=== PATIENT | male | born 1955 | race Caucasian/White ===

== ENCOUNTER 2022-03-06 23:36 | Inpatient (IN) | payer MEDICARE, OTHER ==
--- NOTE | 2022-03-06 23:43 | ED ---
Recheck HPI - General Stated Complaint: STEMI Time Seen by Provider: 03/06/22 23:41 Source: RN notes reviewed, old records reviewed Mode of arrival: EMS Limitations: no limitations - History of Present Illness Initial Comments: This is a 66-year-old male who is accepted in transfer from outside facility. Patient does have history of cardiomyopathy with defibrillator. Patient presents to hospital with persistent chest pain, patient is transferred for ST elevated MS. No prior history of stent placement. Patient has no shortness of breath currently. No recent travel show sick contacts no fevers cough congestion MD Complaint: abnormal lab, other (abn EKG, STEMI) -: minutes(s) Returns Today for: Called Because of Abnormal Lab/Test, persistent/worsening pain related to initial visit Symptoms Since Prior Visit: worsening pain Context: planned re-check (transfer for cardiolofy evaluation) Associated Symptoms: none Treatments Prior to Arrival: other (0) - Related Data Allergies Allergy/AdvReac Type Severity Reaction Status Date / Time morpine Allergy Itching Uncoded 03/06/22 23:40 Review of Systems ROS Statement: Those systems with pertinent positive or pertinent negative responses have been documented in the HPI. ROS Other: All systems not noted in ROS Statement are negative. General Exam General appearance: alert, in no apparent distress Head exam: Present: atraumatic, normocephalic, normal inspection Eye exam: Present: normal appearance, PERRL, EOMI. Absent: scleral icterus, conjunctival injection, periorbital swelling ENT exam: Present: normal exam, mucous membranes moist Neck exam: Present: normal inspection. Absent: tenderness, meningismus, lymphadenopathy Respiratory exam: Present: normal lung sounds bilaterally. Absent: respiratory distress, wheezes, rales, rhonchi, stridor Cardiovascular Exam: Present: regular rate, normal rhythm, normal heart sounds. Absent: systolic murmur, diastolic murmur, rubs, gallop, clicks GI/Abdominal exam: Present: soft, normal bowel sounds. Absent: distended, tenderness, guarding, rebound, rigid Extremities exam: Present: normal inspection, full ROM, normal capillary refill. Absent: tenderness, pedal edema, joint swelling, calf tenderness Back exam: Present: normal inspection Neurological exam: Present: alert, oriented X3, CN II-XII intact Psychiatric exam: Present: normal affect, normal mood Skin exam: Present: warm, dry, intact, normal color. Absent: rash Course - Reevaluation(s) Reevaluation #1: 03/06/22 23:42 Medical record is reviewed Transfer paperwork is reviewed 03/06/22 23:42 ST elevated MS is paged prehospital Reevaluation #2: 03/06/22 23:42 Patient has active chest pain here in the ER Reevaluation #3: 03/06/22 23:42 Patient informed results questions answered Reevaluation #4: 03/06/22 23:43 Differential Chest Pain: Stable Angina, Unstable Angina, STEMI, NSTEMI Aortic Dissection, Pneumothorax, Musculoskeletal, Esophageal Spasm GERD, Cholecystitis, Pancreatitis, Zoster, this is not meant to be an all-inclusive list. Reevaluation #5: 03/06/22 23:43 Was pt. sent in by a medical professional or institution? @ -yes prior ED physician [facility] Did you speak to anyone other than the patient for history? @ -EMS Did you review nursing and triage notes? @ -agree Were old charts reviewed? @ -outside hospital Differential Diagnosis? @ -prior EKG interpreted by me (3pts min.)? @ -[none] X-rays interpreted by me (1pt min.)? @ -[none] CT interpreted by me (1pt min.)? @ -[none] U/S interpreted by me (1pt. min.)? @ -[none] What testing was considered but not performed? (CT, X-rays, U/S, labs)? Why? @ no What meds were considered but not given? Why? @ -[none] Did you discuss the management of the patient with other professionals? @ -cardiology electrical electronics engineers Did you reconcile home meds? @ -[none] Was smoking cessation discussed for >3mins.? @ -[none] Was critical care preformed (if so, how long)? @ -[none] Were there social determinants of health that impacted care today? How? (Homelessness, low income, unemployed, alcoholism, drug addiction, transportation, low edu. Level, literacy, decrease access to med. care, halfway, rehab)? @ -no Was there de-escalation of care discussed even if they declined? (Discuss DNR or withdrawal of care, Hospice)? @ -no What co-morbidities impacted this encounter? (DM, HTN, Smoking, COPD, CAD, Cancer, CVA, Hep., AIDS, mental health diagnosis, sleep apnea, morbid obesity)? @ -cardiomyopathy w defibrillator Was patient admitted / discharged? @ -admit Undiagnosed new problem with uncertain prognosis? @ -[none] Drug Therapy requiring intensive monitoring for toxicity (Heparin, Nitro, Insulin, Cardizem)? @ -[none] Were any procedures done? @ -[none] Diagnosis/symptom? @ -[default] Acute, or Chronic, or Acute on Chronic? @ -[default] Uncomplicated (without systemic symptoms) or Complicated (systemic symptoms)? @ -[default] Side effects of treatment? @ -[none] Exacerbation, Progression, or Severe Exacerbation] @ -[no] Poses a threat to life or bodily function? @ -[no] - Consultations Consultation #1: I did speak with prior hospital, physician prior to except in transfer, Dr. Gama Consultation #2: Did speak with cardiology on-call after paging out ST elevated MS Consultation #3: Spoke with admitting physicians, [facility], they're agreeable to admission Medical Decision Making - Medical Decision Making 66 male to the emergency department for evaluation as transfer prior to going up to the [facility]. Patient is sent to the [facility] no distress of persistent chest pain. Disposition Clinical Impression: STEMI (ST elevation myocardial infarction), Chest pain, Cardiomyopathy Disposition: ADMITTED IP TO THIS HOSP Condition: Serious Is patient prescribed a controlled substance at d/c from ED?: No Referrals: None,Stated [Primary Care Provider] - 1-2 days Time of Disposition: 23:45
[2022-03-06] MEDS ORDERED: VERAPAMIL 2.5 MG/ML 2 ML AMP ONE (23:46)
[2022-03-06] MEDS ORDERED: HYDROmorphone 1 MG/ML 1 ML SYRINGE IVP PRN (23:50)
[2022-03-06] MEDS ORDERED: NALOXONE 0.4 MG/ML 1 ML VIAL IV PRN (23:50)
[2022-03-06] MEDS ORDERED: ONDANSETRON 4 MG/2 ML VIAL IVP PRN (23:50)
[2022-03-06] MEDS ORDERED: SODIUM CHLORIDE 0.9% 1,000 ML IV ONE (23:57)
[2022-03-06] MEDS ORDERED: LIDOCAINE 2% (PF) 20 MG/ML 5 ML VIAL SQ ONE (23:59)
[2022-03-07] MEDS ORDERED: VERAPAMIL SYRINGE (5 MG/10 ML) INTRAARTER ONE (00:02)
[2022-03-07] MEDS ORDERED: HEPARIN SODIUM 1,000 UN/ML (10ML VL) ONE (00:07)
[2022-03-07] MEDS ORDERED: TICAGRELOR 90 MG TAB ONE (00:23)
[2022-03-07] MEDS ORDERED: PRASUGREL 10 MG TAB ONE (00:25)
[2022-03-07] MEDS ORDERED: PRASUGREL 10 MG TAB PO ONE (00:27)
[2022-03-07] MEDS ORDERED: NITROGLYCERIN 1000MCG/10ML SYRINGE INTRACORON ONE (00:28)
[2022-03-07] MEDS ORDERED: IOPAMIDOL-370 125ML BTL INJ ONE (00:38)
[2022-03-07] MEDS ORDERED: ATROPINE SULFATE 0.1 MG/ML 10ML SYRINGE IV PRN (00:48)
[2022-03-07] MEDS ORDERED: MAG HYDROX/AL HYDROX/SIMETH 30 ML CUP PO PRN (00:48)
[2022-03-07] MEDS ORDERED: RX INFO: IV CONTRAST WAS GIVEN 1 EACH MISC MISCELLANE PRN (00:48)
[2022-03-07] MEDS ORDERED: NITROGLYCERIN SL TABS 0.4 MG TAB SUBLINGUAL PRN (00:48)
--- NOTE | 2022-03-07 00:48 | P.PRCINT ---
Percutaneous Coronary Int. - Percutaneous Coronary Intervention Percutaneous Coronary Intervention: PROCEDURES PERFORMED: Left coronary angiography, PCI mid LAD with a 3.25 x 15 mm Xience TOM INDICATION: STEMI PROCEDURE: After the risks, benefits and alternatives of the above mentioned procedure explained in detail with the patient, informed consent was obtained. Patient had already been taken to the catheterization lab and prepped and draped in usual fashion. A 6-Portuguese sheath had been placed in the right radial artery. The decision was made to perform PCI of the LAD. A 6-Portuguese CLS 4.0 guide catheter was used to engage the left main. A 0.014 BMW wire was advanced into the distal LAD. A 2.5 x 12 mm balloon was used to predilate the lesion. Next a 3.25 x 15 mm Xience TOM was placed in the mid LAD. The wire was pulled and final angiograms were performed. Preintervention there was 95% stenosis with JOHN 3 flow and postintervention there was less than 10% stenosis with JOHN 3 flow. The right radial sheath was removed and a TR band was placed with hemostasis achieved. The patient tolerated the procedure well. Patient was transported back to the post catheterization holding area in stable condition. Conscious Sedation: Patient was monitored under the direct supervision of vision of myself for conscious sedation using Versed and fentanyl for a total duration of 24 minutes HEMODYNAMICS: Aorta: 95/55 SELECTIVE CORONARY ARTERIOGRAPHY: LEFT MAIN: The left main is a large caliber vessel which bifurcates into the LAD and circumflex. There is no significant stenosis. LEFT ANTERIOR DESCENDING CORONARY ARTERY: LAD is a large caliber vessel which wraps around to the apex. There is relatively normal LAD other than a mid LAD 95% stenosis. LEFT CIRCUMFLEX CORONARY ARTERY: Left circumflex is a moderate caliber vessel with mild luminal irregularities RIGHT CORONARY ARTERY: The RCA was not injected, see diagnostic report however there are mild luminal irregularities of the RCA. FINAL IMPRESSION: 1. CAD as described above including mid LAD 95% stenosis and otherwise mild luminal irregularities 2. S/p PCI mid LAD with a 3.25 x 15 mm Xience TOM PLAN: 1. Aggressive risk factor modification per most recent ACC/AHA guidelines. 2. Continue aspirin and Effient for 12 months.
[2022-03-07] MEDS ORDERED: SODIUM CHLORIDE 0.9% 1,000 ML in EMPTY BAG 1 BAG IV SCH (01:00)
[2022-03-07 01:05] LABS: Glucose,Whole Blood 210 mg/dL (70-110)
--- NOTE | 2022-03-07 01:41 | CC ---
CARDIAC CATHETERIZATION REPORT INDICATIONS: Acute anterolateral myocardial infarction. PROCEDURE NOTE: After obtaining informed consent, left heart catheterization and coronary angiogram were performed via right radial artery using size 3.5 right Velma and size 4 left Velma catheter. The patient tolerated the procedure well without any obvious immediate complications. He received moderate conscious sedation, total sedation time was 21 minutes. Right radial artery access was obtained using modified Seldinger technique, and 6- Romanian sheath was placed. Catheters and wires were floated into the ascending aorta under fluoroscopic guidance. Patient received 5 mg of verapamil, was already on heparin prior to coming in. FINDINGS: 1. Hemodynamics: Left ventricular end-diastolic pressure is 36 mm. There is no significant gradient across the aortic valve. 2. Left Ventriculogram: Left ventriculogram is not performed. 3. Angiographic Data: a.Right Coronary Artery: Right coronary artery is a large dominant vessel and is free of stenosis. Left main coronary artery is a normal-sized vessel and is free of stenosis, divides into left anterior descending coronary artery and circumflex coronary artery. Circumflex coronary artery and its branches are free of significant stenosis. Proximal LAD shows a long segment of 90% stenosis. CONCLUSION: 90% focal stenosis involving LAD. PLAN: Patient will undergo angioplasty with stent placement of the same. MMODL / IJN: [id number] /
--- NOTE | 2022-03-07 01:52 | CONS ---
CONSULTATION HISTORY OF PRESENT ILLNESS: This is a 66-year-old gentleman with history of dilated cardiomyopathy, status post AICD, diabetes who regularly follows with a power plant operator from [place], probably Dr. Macdonald, had a subcutaneous ICD, presented to hospital with chest pain of 3 hours' duration. He is transferred from [facility] Emergency Room to us as a STEMI. His EKG shows sinus rhythm, left axis deviation, right bundle-branch block with ST-segment elevation in V3, V4, V5, and he also has frequent PVCs. EKG changes are suggestive of anterolateral myocardial infarction. At the time of my evaluation, the patient appears comfortable at rest. Chest pain is improving. I do not have a list of his medications. He denies any allergies. Denies smoking. There is no history of EtOH abuse or drug abuse. REVIEW OF SYSTEMS: HEENT: Unremarkable. CARDIAC: As described above. RESPIRATORY: As described above. GI: Negative. GENITOURINARY: Negative. ALLERGY/IMMUNOLOGY: None. SKIN: Negative. MUSCULOSKELETAL: Negative for arthritis. PSYCHOSOCIAL: Negative. DERM: Negative. CONSTITUTIONAL: As described above. Rest of the system review is not relevant. PHYSICAL EXAMINATION: GENERAL: On exam, he appears comfortable, not in distress but still is in pain. NECK: There is no jugular venous distention. CHEST: Reveals good air entry bilaterally. HEART: Reveals first and second heart sounds. No gallop. ABDOMEN: Soft. EXTREMITIES: Reveal bilateral 1+ pitting edema. ASSESSMENT: Acute anterolateral myocardial infarction, history of cardiomyopathy, status post ICD, history of diabetes, history of hypertension and dyslipidemia. PLAN: The patient will undergo emergent cardiac catheterization with a view to performing angioplasty. He is allergic to morphine and RAFIA inhibitors. MMODL / IJN: [id number] /
[2022-03-07] MEDS: SODIUM CHLORIDE 0.9% 1,000 ML IV SCH ×2 (02:20→23:47)
[2022-03-07] MEDS ORDERED: FUROSEMIDE 10 MG/ML 4 ML VIAL IV STA (02:41)
[2022-03-07] MEDS ORDERED: IPRATROPIUM-ALBUTEROL 3 ML NEB INHALATION STA (02:42)
[2022-03-07 03:55] LABS: Basophils # (A) 0.1 k/uL (0-0.2); Basophils % (A) 1 %; Eosinophils # (A) 0.1 k/uL (0-0.7); Eosinophils % (A) 1 %; HCT 49.7 % (39.0-53.0); HGB 16.6 gm/dL (13.0-17.5); Lymphocytes # (A) 1.5 k/uL (1.0-4.8); Lymphocytes % (A) 16 %; MCH 30.2 pg (25.0-35.0); MCHC 33.4 g/dL (31.0-37.0); MCV 90.2 fL (80.0-100.0); Mean Platelet Volume 8.8; Monocytes # (A) 0.6 k/uL (0-1.0); Monocytes % (A) 6 %; Neutrophils # (A) 7.5 k/uL (1.3-7.7); Neutrophils % (A) 76 %; Platelet Count 185 k/uL (150-450); RBC 5.51 m/uL (4.30-5.90); RDW 12.7 % (11.5-15.5); WBC 9.9 k/uL (3.8-10.6)
[2022-03-07 04:10] LABS: ALT 66 U/L (4-49); AST 298 U/L (17-59); African American GFR (CKD) >90 (>60 ml/min/1.73 sqM); Albumin 4.1 g/dL (3.5-5.0); Alkaline Phosphatase 104 U/L (38-126); Anion Gap 10 mmol/L; Blood Urea Nitrogen 19 mg/dL (9-20); Carbon Dioxide 23 mmol/L (22-30); Chloride 105 mmol/L (98-107); Glucose 204 mg/dL (74-99); Magnesium 2.2 mg/dL (1.6-2.3); Non-African American GFR(CKD) >90 (>60 ml/min/1.73 sqM); Phosphorus 3.9 mg/dL (2.5-4.5); Potassium 4.1 mmol/L (3.5-5.1); Sodium 138 mmol/L (137-145); Total Bilirubin 0.7 mg/dL (0.2-1.3); Total Protein 7.6 g/dL (6.3-8.2)
[2022-03-07] MEDS: ATORVASTATIN 40 MG TAB PO SCH (09:21)
[2022-03-07] MEDS: METOPROLOL SUCCINATE (ER) 25 MG TAB.ER.24H PO SCH (09:21)
[2022-03-07] MEDS: LOSARTAN 25 MG TAB PO SCH (09:21)
[2022-03-07] MEDS: ASPIRIN 81 MG PO SCH (09:21)
[2022-03-07] MEDS: FUROSEMIDE 10 MG/ML 4 ML VIAL IV SCH ×3 (09:21→23:46)
[2022-03-07 11:52] LABS: Glucose,Whole Blood 231 mg/dL (70-110)
--- NOTE | 2022-03-07 12:12 | PN ---
PROGRESS NOTE SUBJECTIVE: Cosmo is a 66-year-old gentleman with history of nonischemic cardiomyopathy with severe LV dysfunction, chronic systolic heart failure, who is admitted to hospital with acute anterolateral myocardial infarction, underwent emergent cardiac catheterization and angioplasty of the LAD. His chest pain has resolved. He appears short of breath at rest, but he states that he is chronically short of breath and does not seem to be in any distress. The patient is currently on aspirin, Lipitor. I started him on Lasix 40 mg IV q.8, losartan 25 mg daily, and Toprol-XL 25 mg daily. His troponin was 58 on his initial presentation with subsequent came back at 71. Hemoglobin is 16.6, potassium is 4.1, and a creatinine of 0.8. The patient initially presented to [facility] and had subsequently been transferred to [facility]. OBJECTIVE: VITAL SIGNS: Respiratory rate is 20, heart rate is 94 beats per minute. Blood pressure is 120/82. His O2 saturation is 95% on 2 L. CHEST: Reveals occasional crackles bilaterally. Heart exam reveals first and second heart sounds. No gallop. No murmur. ABDOMEN: Soft. EXTREMITIES: Reveals mild edema. ASSESSMENT AND PLAN: 1. Acute anterolateral myocardial infarction, status post catheterization and angioplasty of left anterior descending. 2. Cardiomyopathy with acute exacerbation of chronic systolic heart failure. 3. Status post AICD. PLAN: 1. The patient will continue with aspirin, Lipitor, Lasix, Toprol-XL, Cozaar, and Hep- Lock b.i.d. 2. The patient is also on Effient. I will obtain a 2D echo. If he is stable, we may be able to move him out of ICU either later this afternoon or tomorrow. MMODL / IJN: [id number] /
[2022-03-07] MEDS ORDERED: DEXTROSE 50% SYRINGE 50 ML IVP PRN ×2 (12:45)
--- NOTE | 2022-03-07 12:55 | P.HPIM ---
History of Present Illness H&P Date: 03/07/22 History of present illness; patient is 66-year-old gentleman with past medical significant for dilated cardiomyopathy, status post AICD, diabetes mellitus who is a transfer from [facility] because of chest pain. Patient initially presented there because of chest pain that started 3 hours ago, patient was found to have EKG changes and ST segment elevation in v3, V4, V5, V6. Patient was transferred to [facility] for further evaluation by interventional cardiology. Patient went cardiac cath S/p PCI mid LAD with a 3.25 x 15 mm Xience TOM. Patient was admitted to ICU for further evaluation and treatment REVIEW OF SYSTEMS: CONSTITUTIONAL: No fever, no malaise, no fatigue. HEENT: No recent visual problems or hearing problems. Denied any sore throat. CARDIOVASCULAR: No chest pain, orthopnea, PND, no palpitations, no syncope. PULMONARY: No shortness of breath, no cough, no hemoptysis. GASTROINTESTINAL: No diarrhea, no nausea, no vomiting, no abdominal pain. NEUROLOGICAL: No headaches, no weakness, no numbness. HEMATOLOGICAL: Denies any bleeding or petechiae. GENITOURINARY: Denies any burning micturition, frequency, or urgency. MUSCULOSKELETAL/RHEUMATOLOGICAL: Denies any joint pain, swelling, or any muscle pain. ENDOCRINE: Denies any polyuria or polydipsia. The rest of the 14-point review of systems is negative. PHYSICAL EXAMINATION: GENERAL: The patient is alert and oriented x3, not in any acute distress. Well developed, well nourished. HEENT: Pupils are round and equally reacting to light. EOMI. No scleral icterus. No conjunctival pallor. Normocephalic, atraumatic. No pharyngeal erythema. No thyromegaly. CARDIOVASCULAR: S1 and S2 present. No murmurs, rubs, or gallops. PULMONARY: Chest is clear to auscultation, no wheezing or crackles. ABDOMEN: Soft, nontender, nondistended, normoactive bowel sounds. No palpable organomegaly. MUSCULOSKELETAL: No joint swelling or deformity. EXTREMITIES: No cyanosis, clubbing, or pedal edema. NEUROLOGICAL: Gross neurological examination did not reveal any focal deficits. SKIN: No rashes. Assessment and plan ST elevation [place] S/p PCI mid LAD with a 3.25 x 15 mm Xience TOM CAD Dilated cardiomyopathy status post AICD Diabetes mellitus Hypertension Plan; Monitor vital signs Monitor CBC Monitor CMP Monitor blood sugar levels, continue sliding scale insulin Continue aspirin and Effient. Continue losartan and metoprolol Continue Lipitor Follow-up on cardiology recommendations Past Medical History Past Medical History: Coronary Artery Disease (CAD), Chest Pain / Angina, Diabetes Mellitus Additional Past Medical History / Comment(s): Divertiuitis, ostomy with reversal, cardiomyopathy History of Any Multi-Drug Resistant Organisms: None Reported Additional Past Surgical History / Comment(s): Multiple abdominal surgeries Past Anesthesia/Blood Transfusion Reactions: No Reported Reaction Past Psychological History: Depression Smoking Status: Former smoker Medications and Allergies Allergies Allergy/AdvReac Type Severity Reaction Status Date / Time morpine Allergy Itching Uncoded 03/06/22 23:40 Physical Exam Vitals: Vital Signs Pulse Resp BP BP Pulse Ox 03/07/22 12:00 93 25 H 116/69 94 L 03/07/22 11:00 92 14 131/46 95 03/07/22 10:00 101 H 20 125/89 93 L 03/07/22 09:00 96 14 118/80 93 L 03/07/22 08:00 90 16 123/83 93 L 03/07/22 07:58 90 L 03/07/22 07:00 94 20 121/83 95 03/07/22 06:30 92 14 119/79 95 03/07/22 06:00 101 H 26 H 123/100 94 L 03/07/22 05:30 93 20 115/69 95 03/07/22 05:00 98 16 112/71 95 03/07/22 04:33 28 H 112/71 03/07/22 04:30 90 18 116/76 94 L 03/07/22 04:00 96 16 119/88 94 L 03/07/22 03:55 93 03/07/22 03:49 98 03/07/22 03:33 17 119/88 03/07/22 03:30 100 20 131/107 95 03/07/22 03:00 94 29 H 113/99 94 L 03/07/22 02:33 22 113/99 03/07/22 02:30 92 12 123/77 94 L 03/07/22 02:03 22 123/77 03/07/22 02:00 101 H 15 115/73 93 L 03/07/22 01:33 26 H 121/91 03/07/22 01:30 98 19 136/79 95 03/07/22 01:18 24 136/79 03/07/22 01:03 30 H 123/87 03/07/22 00:48 28 H Intake and Output 03/06/22 03/07/22 03/07/22 22:59 06:59 14:59 Intake Total 780 100 Output Total 1350 400 Balance -570 -300 Intake: IV 280 100 Sodium Chloride 0.9% 1, 230 100 000 ml @ 20 mls/hr IV . Q24H [facility] Rx#:[id number] Oral 500 Output: Urine 1350 400 Other: Voiding Method Urinal # Voids 0 Weight 123 kg Results CBC & Chem 7: 03/07/22 03:29 03/07/22 03:29 Labs: Abnormal Lab Results - Last 24 Hours (Table) 03/07/22 03/07/22 03/07/22 Range/Units 01:03 03:29 03:29 Glucose 204 H (74-99) mg/dL POC Glucose (mg/dL) 210 H (70-110) mg/dL AST 298 H (17-59) U/L ALT 66 H (4-49) U/L Troponin I 58.000 H* (0.000-0.034) ng/mL 03/07/22 03/07/22 Range/Units 06:10 11:50 Glucose (74-99) mg/dL POC Glucose (mg/dL) 231 H (70-110) mg/dL AST (17-59) U/L ALT (4-49) U/L Troponin I 71.700 H* (0.000-0.034) ng/mL Thrombosis Risk Factor Assmnt - Choose All That Apply Each Risk Factor Represents 2 Points: Age 61-74 years Thrombosis Risk Factor Assessment Total Risk Factor Score: 2 Thrombosis Risk Factor Assessment Level: Low Risk
[2022-03-07 12:57] LABS: Glucose,Whole Blood 251 mg/dL (70-110)
[2022-03-07] MEDS: INSULIN ASPART (NovoLOG) 100 UNIT/ML VIAL SQ SCH ×3 (13:24→20:20)
[2022-03-07 16:29] LABS: Glucose,Whole Blood 235 mg/dL (70-110)
[2022-03-07] MEDS ORDERED: INSULIN ASPART (NovoLOG) 100 UNIT/ML VIAL SQ SCH (17:30)
[2022-03-07 20:14] LABS: Glucose,Whole Blood 153 mg/dL (70-110)
[2022-03-08 06:05] LABS: Basophils # (A) 0.1 k/uL (0-0.2); Basophils % (A) 1 %; Eosinophils # (A) 0.2 k/uL (0-0.7); Eosinophils % (A) 2 %; HCT 48.1 % (39.0-53.0); HGB 15.1 gm/dL (13.0-17.5); Lymphocytes # (A) 1.7 k/uL (1.0-4.8); Lymphocytes % (A) 21 %; MCH 28.9 pg (25.0-35.0); MCHC 31.5 g/dL (31.0-37.0); MCV 91.7 fL (80.0-100.0); Mean Platelet Volume 8.5; Monocytes # (A) 0.7 k/uL (0-1.0); Monocytes % (A) 8 %; Neutrophils # (A) 5.4 k/uL (1.3-7.7); Neutrophils % (A) 67 %; Platelet Count 169 k/uL (150-450); RBC 5.24 m/uL (4.30-5.90); RDW 12.6 % (11.5-15.5); WBC 8.1 k/uL (3.8-10.6)
[2022-03-08 06:15] LABS: African American GFR (CKD) >90 (>60 ml/min/1.73 sqM); Anion Gap 5 mmol/L; Blood Urea Nitrogen 19 mg/dL (9-20); Calcium 8.3 mg/dL (8.4-10.2); Carbon Dioxide 28 mmol/L (22-30); Chloride 102 mmol/L (98-107); Glucose 144 mg/dL (74-99); Non-African American GFR(CKD) 88 (>60 ml/min/1.73 sqM); Sodium 135 mmol/L (137-145)
[2022-03-08 06:51] LABS: Glucose,Whole Blood 171 mg/dL (70-110)
[2022-03-08] MEDS: INSULIN ASPART (NovoLOG) 100 UNIT/ML VIAL SQ SCH ×4 (06:54→20:18)
[2022-03-08] MEDS: ASPIRIN 81 MG PO SCH (09:08)
[2022-03-08] MEDS: FUROSEMIDE 10 MG/ML 4 ML VIAL IV SCH (09:08)
[2022-03-08] MEDS: METOPROLOL SUCCINATE (ER) 25 MG TAB.ER.24H PO SCH (09:08)
[2022-03-08] MEDS: ATORVASTATIN 40 MG TAB PO SCH (09:08)
[2022-03-08] MEDS: PRASUGREL 10 MG TAB PO SCH (09:09)
[2022-03-08] MEDS: LOSARTAN 25 MG TAB PO SCH (09:09)
--- NOTE | 2022-03-08 10:40 | PN ---
PROGRESS NOTE SUBJECTIVE: A 66-year-old gentleman that is admitted to hospital with acute anterolateral myocardial infarction and underwent cardiac catheterization and angioplasty of the LAD. He has a history of cardiomyopathy and chronic systolic heart failure and has had an AICD. This morning, he is feeling much better, did not have any echo yesterday. He denies chest pain or difficulty in breathing. OBJECTIVE: VITAL SIGNS: Afebrile, heart rate is 87 beats per minute, blood pressure is 107/68, respiratory rate 18, O2 saturation 95% on 3 L. NECK: There is no jugular venous distention. Carotid upstroke is diminished. There is no bruit. CHEST: Reveals good air entry bilaterally. HEART: Reveals first and second heart sounds. No gallop. No murmur. EXTREMITIES: Did not reveal any edema. Peripheral pulses are palpable. LABORATORY DATA: Labs show a hemoglobin of 15.1, platelet count is 169, potassium is 4, creatinine is 0.9. MEDICATIONS: The patient is currently on: 1. Aspirin. 2. Lipitor. 3. Lasix 40 mg IV q.8, which I am going to decrease to IV q.12. 4. Cozaar. 5. Toprol. 6. Effient. ASSESSMENT: 1. Acute anterolateral myocardial infarction, status post cath and angioplasty. 2. Ischemic cardiomyopathy with chronic systolic heart failure. PLAN: I will continue the patient on current medications. Stop the Cozaar at this time and start him back on Entresto after 48 hours. Continue rest of the medications. MMODL / IJN: [id number] /
[2022-03-08 11:48] LABS: Glucose,Whole Blood 173 mg/dL (70-110)
--- NOTE | 2022-03-08 12:20 | P.PN ---
Subjective Progress Note Date: 03/08/22 patient is 66-year-old gentleman with past medical significant for dilated cardiomyopathy, status post AICD, diabetes mellitus who is a transfer from [facility] because of chest pain. Patient initially presented there because of chest pain that started 3 hours ago, patient was found to have EKG changes and ST segment elevation in v3, V4, V5, V6. Patient was transferred to [facility] for further evaluation by interventional cardiology. Patient went cardiac cath S/p PCI mid LAD with a 3.25 x 15 mm Xience TOM. Patient was admitted to ICU for further evaluation and treatment 03/08. Patient seen and examined. Not requiring any oxygen at this time. States breathing has improved. No chest pain. Vital signs stable REVIEW OF SYSTEMS: CONSTITUTIONAL: No fever, no malaise,. CARDIOVASCULAR: No chest pain, no palpitations, no syncope. PULMONARY: No shortness of breath, no cough, GASTROINTESTINAL: No diarrhea, no nausea, no vomiting, no abdominal pain. NEUROLOGICAL: No headaches, no weakness, PHYSICAL EXAMINATION: GENERAL: The patient is alert and oriented x3, not in any acute distress. Well developed, well nourished. HEENT: Pupils are round and equally reacting to light. EOMI. No scleral icterus. No conjunctival pallor. Normocephalic, atraumatic. No pharyngeal erythema. No thyromegaly. CARDIOVASCULAR: S1 and S2 present. No murmurs, rubs, or gallops. PULMONARY: Chest is clear to auscultation, no wheezing or crackles. ABDOMEN: Soft, nontender, nondistended, normoactive bowel sounds. No palpable organomegaly. MUSCULOSKELETAL: No joint swelling or deformity. EXTREMITIES: No cyanosis, clubbing, or pedal edema. NEUROLOGICAL: Gross neurological examination did not reveal any focal deficits. SKIN: No rashes. Assessment and plan ST elevation [place] S/p PCI mid LAD with a 3.25 x 15 mm Xience TOM CAD Dilated cardiomyopathy status post AICD Diabetes mellitus Hypertension Plan; Monitor vital signs Monitor CBC Monitor CMP Monitor blood sugar levels, continue sliding scale insulin Continue aspirin and Effient. Continue losartan and metoprolol Lasix decreased to 40 mg every 12 Continue Lipitor Follow-up on cardiology recommendations Objective - Vital Signs Vital signs: Vital Signs Temp 98.5 F 03/08/22 11:57 Pulse 84 03/08/22 11:57 Resp 22 03/08/22 11:57 BP 85/42 03/08/22 11:57 Pulse Ox 93 L 03/08/22 11:57 FiO2 Intake & Output 03/07/22 03/08/22 03/08/22 18:59 06:59 18:59 Intake Total 100 180 Output Total 2600 1050 Balance -2500 180 -1050 Weight 123 kg 120.5 kg Intake: IV 100 180 Sodium Chloride 0.9% 1, 100 180 000 ml @ 20 mls/hr IV . Q24H [facility] Rx#:[id number] Output: Urine 2600 1050 Other: Voiding Method Urinal Urinal Urinal # Voids 0 3 # Bowel Movements 1 - Labs CBC & Chem 7: 03/08/22 05:45 03/08/22 05:45 Labs: Abnormal Lab Results - Last 24 Hours (Table) 03/07/22 03/07/22 03/07/22 Range/Units 03:29 12:56 16:28 Sodium (137-145) mmol/L Glucose (74-99) mg/dL POC Glucose (mg/dL) 251 H 235 H (70-110) mg/dL Hemoglobin A1c 9.3 H (0.0-6.0) % Calcium (8.4-10.2) mg/dL 03/07/22 03/08/22 03/08/22 Range/Units 20:13 05:45 06:50 Sodium 135 L (137-145) mmol/L Glucose 144 H (74-99) mg/dL POC Glucose (mg/dL) 153 H 171 H (70-110) mg/dL Hemoglobin A1c (0.0-6.0) % Calcium 8.3 L (8.4-10.2) mg/dL 03/08/22 Range/Units 11:46 Sodium (137-145) mmol/L Glucose (74-99) mg/dL POC Glucose (mg/dL) 173 H (70-110) mg/dL Hemoglobin A1c (0.0-6.0) % Calcium (8.4-10.2) mg/dL
[2022-03-08] MEDS ORDERED: ACETAMINOPHEN TAB 325 MG TAB PO PRN (14:54)
[2022-03-08] MEDS: ALPRAZolam 0.25 MG TAB PO PRN (15:17)
[2022-03-08 17:29] LABS: Glucose,Whole Blood 261 mg/dL (70-110)
[2022-03-08 19:42] LABS: Glucose,Whole Blood 190 mg/dL (70-110)
[2022-03-08] MEDS: NOREPINEPHRINE 4 MG in SODIUM CHLORIDE 0.9% 250 ML IV SCH (20:08)
[2022-03-08] MEDS: ZOLPIDEM 5 MG TAB PO PRN (20:18)
[2022-03-08] MEDS ORDERED: FUROSEMIDE 10 MG/ML 4 ML VIAL IV SCH (21:00)
[2022-03-08 23:54] LABS: Magnesium 2.4 mg/dL (1.6-2.3)
[2022-03-09] MEDS: ALPRAZolam 0.25 MG TAB PO PRN (00:05)
[2022-03-09] MEDS: SODIUM CHLORIDE 0.9% 1,000 ML IV SCH (00:05)
[2022-03-09 05:29] LABS: Basophils % (A) 1 %; Eosinophils # (A) 0.2 k/uL (0-0.7); Eosinophils % (A) 3 %; HCT 46.5 % (39.0-53.0); HGB 15.2 gm/dL (13.0-17.5); Lymphocytes # (A) 2.2 k/uL (1.0-4.8); Lymphocytes % (A) 23 %; MCH 30.3 pg (25.0-35.0); MCHC 32.7 g/dL (31.0-37.0); MCV 92.5 fL (80.0-100.0); Mean Platelet Volume 8.7; Monocytes # (A) 0.7 k/uL (0-1.0); Monocytes % (A) 8 %; Neutrophils # (A) 5.9 k/uL (1.3-7.7); Neutrophils % (A) 63 %; Platelet Count 180 k/uL (150-450); RBC 5.02 m/uL (4.30-5.90); RDW 13.1 % (11.5-15.5); WBC 9.4 k/uL (3.8-10.6)
[2022-03-09 05:40] LABS: ALT 51 U/L (4-49); AST 68 U/L (17-59); African American GFR (CKD) >90 (>60 ml/min/1.73 sqM); Albumin 3.8 g/dL (3.5-5.0); Alkaline Phosphatase 93 U/L (38-126); Anion Gap 5 mmol/L; Blood Urea Nitrogen 28 mg/dL (9-20); Calcium 8.5 mg/dL (8.4-10.2); Carbon Dioxide 29 mmol/L (22-30); Chloride 101 mmol/L (98-107); Glucose 149 mg/dL (74-99); Non-African American GFR(CKD) 83 (>60 ml/min/1.73 sqM); Potassium 3.9 mmol/L (3.5-5.1); Sodium 135 mmol/L (137-145); Total Bilirubin 1.5 mg/dL (0.2-1.3); Total Protein 7.1 g/dL (6.3-8.2)
[2022-03-09 06:54] LABS: Glucose,Whole Blood 130 mg/dL (70-110)
[2022-03-09] MEDS: INSULIN ASPART (NovoLOG) 100 UNIT/ML VIAL SQ SCH ×4 (06:59→20:26)
--- NOTE | 2022-03-09 07:48 | P.PN ---
Subjective Progress Note Date: 03/09/22 Principal diagnosis: Acute anterior ST elevation myocardial infarction The patient is a 66-year-old gentleman who was admitted to the hospital with a chest discomfort and was diagnosed with acute anterior ST elevation myocardial infarction be he underwent an emergent heart catheterization and stenting of the LAD March 092022 The patient was seen and evaluated this morning. He is asymptomatic. He is hemodynamically unstable and requiring small doses of norepinephrine. I'm going to decrease the dose of Lasix to 20 mg by mouth twice a day hopefully we can wean him from norepinephrine. Beside that she remains on dual antiplatelet therapy along with intermediate intensity statin. Echo still pending Objective - Vital Signs Vital signs: Vital Signs Temp 98.4 F 03/09/22 00:00 Pulse 86 03/09/22 06:15 Resp 13 03/09/22 06:15 BP 118/70 03/09/22 06:15 Pulse Ox 93 L 03/09/22 06:15 FiO2 Intake & Output 03/08/22 03/09/22 03/09/22 18:59 06:59 18:59 Intake Total 398.564 Output Total 1050 Balance -1050 398.564 Intake: IV 360 Sodium Chloride 0.9% 1, 360 000 ml @ 20 mls/hr IV . Q24H [facility] Rx#:[id number] Intake, IV Titration 38.564 Amount Norepinephrine 4 mg In 38.564 Sodium Chloride 0.9% 250 ml @ 0.03 MCG/KG/MIN 13. 773 mls/hr IV .[id number] [facility] Rx#:[id number] Output: Urine 1050 Other: Voiding Method Urinal Urinal # Voids 2 - Constitutional General appearance: Present: no acute distress - Respiratory Respiratory: bilateral: CTA - Cardiovascular Rhythm: regular - Labs CBC & Chem 7: 03/09/22 05:16 03/09/22 05:16 Labs: Abnormal Lab Results - Last 24 Hours (Table) 03/08/22 03/08/22 03/08/22 Range/Units 11:46 17:26 19:41 Sodium (137-145) mmol/L BUN (9-20) mg/dL Glucose (74-99) mg/dL POC Glucose (mg/dL) 173 H 261 H 190 H (70-110) mg/dL Magnesium (1.6-2.3) mg/dL Total Bilirubin (0.2-1.3) mg/dL AST (17-59) U/L ALT (4-49) U/L 03/08/22 03/09/22 03/09/22 Range/Units 23:24 05:16 06:53 Sodium 135 L (137-145) mmol/L BUN 28 H (9-20) mg/dL Glucose 149 H (74-99) mg/dL POC Glucose (mg/dL) 130 H (70-110) mg/dL Magnesium 2.4 H (1.6-2.3) mg/dL Total Bilirubin 1.5 H (0.2-1.3) mg/dL AST 68 H (17-59) U/L ALT 51 H (4-49) U/L Assessment and Plan Assessment: Assessment Acute anterior ST elevation myocardial infarction Hypotension requiring vasopressors Plan Decrease the dose of Lasix Continue dual antiplatelet therapy Try to wean the patient from norepinephrine
[2022-03-09] MEDS: ASPIRIN 81 MG PO SCH (09:05)
[2022-03-09] MEDS: ATORVASTATIN 40 MG TAB PO SCH (09:05)
[2022-03-09] MEDS: PRASUGREL 10 MG TAB PO SCH (09:05)
[2022-03-09] MEDS: TERBUTALINE 1 MG/ML VIAL SQ ONE ×2 (09:30→09:51)
--- NOTE | 2022-03-09 10:16 | P.CNPUL ---
History of Present Illness Consult date: 03/09/22 Requesting physician: Eddy Jurado Reason for consult: chest pain Chief complaint: Chest pain. History of present illness: Pulmonary consult dated 03/09/2022. 66-year-old male who was seen in the emergency room on March 06. The patient was a transfer from an outside facility for chest pain, cardiomyopathy, and suspected ST segment elevation myocardial infarction. The patient apparently de nied any shortness of breath, but did have chest discomfort. Going to the catheterization laboratory on March 07 had a stent placed in his mid LAD vessel. The procedure was done by Dr. Prajapati. Currently, the patient is seen in the intensive care unit. He is in room 254. The patient's on 2 L of oxygen. He is getting saline at KVO. He is also getting a small amount of norepinephrine, at 3.5 g/min. He is resting comfortably without any distress. CBC is normal. Sodium 135, potassium 3.9, chlorides 101, CO2 29, anion gap 5, BUN 28, and creatinine 0.96. No recent chest x-ray. Review of Systems REVIEW OF SYSTEMS: CONSTITUTIONAL: [Negative.] NEUROLOGIC: [ Negative.] HEENT: [ Negative.] CARDIAC: Chest pain. PULMONARY: [Negative.] GI: [Negative.] : [Negative.] RHEUMATOLOGIC: [ Negative.] IMMUNOLOGIC: [ Negative.] ENDOCRINE: [Negative. ] DERMATOLOGIC: [Negative.] Past Medical History Past Medical History: Coronary Artery Disease (CAD), Chest Pain / Angina, Diabetes Mellitus Additional Past Medical History / Comment(s): Divertiuitis, ostomy with reversal, cardiomyopathy History of Any Multi-Drug Resistant Organisms: None Reported Additional Past Surgical History / Comment(s): Multiple abdominal surgeries Past Anesthesia/Blood Transfusion Reactions: No Reported Reaction Past Psychological History: Depression Smoking Status: Former smoker Medications and Allergies Home Medications Medication Instructions Recorded Confirmed Type Empagliflozin [Jardiance] 25 mg PO DAILY 03/07/22 03/07/22 History Furosemide [Lasix] 40 mg PO DAILY 03/07/22 03/07/22 History Insulin Glargine,Hum.rec.anlog 40 units SQ BID 03/07/22 03/07/22 History [Lantus Solostar Pen] Sacubitril/Valsartan [Entresto 49 1 tab PO BID 03/07/22 03/07/22 History mg-51 mg Tablet] Spironolactone [Aldactone] 25 mg PO DAILY 03/07/22 03/07/22 History carvediloL [Coreg] 3.125 mg PO BID 03/07/22 03/07/22 History metFORMIN HCL 1,000 mg PO BID 03/07/22 03/07/22 History Allergies Allergy/AdvReac Type Severity Reaction Status Date / Time morpine Allergy Itching Uncoded 03/06/22 23:40 Physical Exam Osteopathic Statement: *. No significant issues noted on an osteopathic structural exam other than those noted in the History and Physical/Consult. Vitals: Vital Signs Temp Pulse Pulse Resp BP BP Pulse Ox 03/09/22 09:15 91 103/63 93 L 03/09/22 09:00 88 14 99/66 94 L 03/09/22 08:45 90 112/78 93 L 03/09/22 08:30 90 111/67 94 L 03/09/22 08:15 87 110/66 03/09/22 08:00 97.7 F 87 10 L 109/72 93 L 03/09/22 07:45 90 98/67 94 L 03/09/22 07:30 92 12 102/58 03/09/22 07:15 94 03/09/22 07:00 92 123/83 97 03/09/22 06:45 82 22 116/82 03/09/22 06:30 78 20 121/79 03/09/22 06:15 86 13 118/70 93 L 03/09/22 06:00 87 14 118/77 93 L 03/09/22 05:45 87 13 108/75 93 L 03/09/22 05:30 80 20 120/75 93 L 03/09/22 05:15 84 17 103/74 93 L 03/09/22 05:00 93 13 101/67 93 L 03/09/22 04:45 85 25 H 107/76 93 L 03/09/22 04:30 92 26 H 92 L 03/09/22 04:15 85 22 91 L 03/09/22 04:00 98 15 100/64 94 L 03/09/22 03:45 84 18 94/68 93 L 03/09/22 03:30 86 17 103/69 92 L 03/09/22 03:15 88 20 118/91 93 L 03/09/22 03:00 87 17 109/82 93 L 03/09/22 02:45 85 19 104/72 94 L 03/09/22 02:30 86 16 102/60 93 L 03/09/22 02:15 88 25 H 104/75 93 L 03/09/22 02:00 81 20 99/69 92 L 03/09/22 01:45 81 20 101/65 93 L 03/09/22 01:30 78 13 100/74 93 L 03/09/22 01:15 89 10 L 102/62 93 L 03/09/22 01:00 83 17 102/74 97 03/09/22 00:45 85 24 94/47 96 03/09/22 00:30 87 26 H 104/80 93 L 03/09/22 00:15 88 14 96/70 93 L 03/09/22 00:00 98.4 F 88 12 101/68 93 L 03/08/22 23:45 86 17 97/69 93 L 03/08/22 23:30 89 27 H 100/67 93 L 03/08/22 23:15 92 18 127/59 92 L 03/08/22 23:00 95 17 102/89 92 L 03/08/22 22:45 90 20 146/93 93 L 03/08/22 22:30 89 33 H 97/80 92 L 03/08/22 22:15 86 10 L 77/52 03/08/22 22:00 82 13 76/57 95 03/08/22 21:45 80 19 93/46 03/08/22 21:30 88 29 H 116/100 93 L 03/08/22 21:15 82 25 H 108/95 03/08/22 21:00 82 20 97/66 96 03/08/22 20:45 87 5 L 92/65 94 L 03/08/22 20:30 86 12 77/58 93 L 03/08/22 20:15 80 19 82/60 93 L 03/08/22 20:00 82 19 95 03/08/22 19:45 83 19 78/53 93 L 03/08/22 19:41 98.7 F 82 14 78/53 93 L 03/08/22 19:30 72 17 83/56 95 01/15/23 19:15 80 11 L 95 03/08/22 16:00 98.4 F 20 83/56 98 03/08/22 11:57 98.5 F 84 22 85/42 93 L Intake and Output 03/08/22 03/09/22 03/09/22 22:59 06:59 14:59 Intake Total 238.564 160 86.541 Balance 238.564 160 86.541 Intake: IV 200 160 Sodium Chloride 0.9% 1, 200 160 000 ml @ 20 mls/hr IV . Q24H [facility] Rx#:[id number] Intake, IV Titration 38.564 86.541 Amount Norepinephrine 4 mg In 38.564 86.541 Sodium Chloride 0.9% 250 ml @ 0.03 MCG/KG/MIN 13. 773 mls/hr IV .[id number] [facility] Rx#:[id number] Other: Voiding Method Urinal Urinal # Voids 2 No acute distress, oriented 3. Nasal O2 in place at 2 L. HEENT examination is grossly unremarkable. Neck supple. Full range of motion. No adenopathy thyromegaly or neck vein distention. Cardiovascular examination reveals regular rhythm rate. S1-S2 normal. No S3 or S4. No discernible murmur noted. Heart rate 87 bpm. Lungs reveal clear breath sounds. Breath sounds are equal bilaterally. No adventitious lung sounds including wheezes rhonchi or crackles. Abdomen soft bowel sounds are heard. No masses or tenderness. Extremities are intact. No cyanosis clubbing or edema. Skin is without rash or lesion. Neurologic examination is brief but nonfocal. Results - Laboratory Findings CBC and BMP: 03/09/22 05:16 03/09/22 05:16 Abnormal lab findings: Abnormal Labs 03/07/22 03/07/22 03/07/22 01:03 03:29 03:29 Sodium BUN Glucose 204 H POC Glucose (mg/dL) 210 H Hemoglobin A1c Calcium Magnesium Total Bilirubin AST 298 H ALT 66 H Troponin I 58.000 H* 03/07/22 03/07/22 03/07/22 03:29 06:10 11:50 Sodium BUN Glucose POC Glucose (mg/dL) 231 H Hemoglobin A1c 9.3 H Calcium Magnesium Total Bilirubin AST ALT Troponin I 71.700 H* 01/14/23 01/14/23 01/14/23 12:56 16:28 20:13 Sodium BUN Glucose POC Glucose (mg/dL) 251 H 235 H 153 H Hemoglobin A1c Calcium Magnesium Total Bilirubin AST ALT Troponin I 03/08/22 03/08/22 03/08/22 05:45 06:50 11:46 Sodium 135 L BUN Glucose 144 H POC Glucose (mg/dL) 171 H 173 H Hemoglobin A1c Calcium 8.3 L Magnesium Total Bilirubin AST ALT Troponin I 03/08/22 03/08/22 03/08/22 17:26 19:41 23:24 Sodium BUN Glucose POC Glucose (mg/dL) 261 H 190 H Hemoglobin A1c Calcium Magnesium 2.4 H Total Bilirubin AST ALT Troponin I 03/09/22 03/09/22 05:16 06:53 Sodium 135 L BUN 28 H Glucose 149 H POC Glucose (mg/dL) 130 H Hemoglobin A1c Calcium Magnesium Total Bilirubin 1.5 H AST 68 H ALT 51 H Troponin I Assessment and Plan Assessment: ST segment elevation myocardial infarction, status post stent placement, mid LAD, 03/07/2022. History of cardiomyopathy. Status post AICD placement. History of diabetes mellitus. Plan: Plan dated 03/09/2022. The nurse will attempt to wean the patient also norepinephrine. The patient appears to be relatively stable. He is sitting in a chair next to his bed. The chest pain or chest discomfort. There is no shortness of breath or difficulty breathing. Labs, x-rays, and medications are reviewed. We will continue to follow the patient and make recommendations along the way. Time with Patient: Greater than 30
[2022-03-09] MEDS: FUROSEMIDE 10 MG/ML 2 ML VIAL IV SCH ×2 (10:48→20:27)
[2022-03-09] MEDS: METOPROLOL SUCCINATE (ER) 25 MG TAB.ER.24H PO SCH (10:48)
--- NOTE | 2022-03-09 11:22 | P.PN ---
Subjective Progress Note Date: 03/09/22 patient is 66-year-old gentleman with past medical significant for dilated cardiomyopathy, status post AICD, diabetes mellitus who is a transfer from [facility] because of chest pain. Patient initially presented there because of chest pain that started 3 hours ago, patient was found to have EKG changes and ST segment elevation in v3, V4, V5, V6. Patient was transferred to [facility] for further evaluation by interventional cardiology. Patient went cardiac cath S/p PCI mid LAD with a 3.25 x 15 mm Xience TOM. Patient was admitted to ICU for further evaluation and treatment 03/08. Patient seen and examined. Not requiring any oxygen at this time. States breathing has improved. No chest pain. Vital signs stable 03/09. Patient seen and examined. Patient was initiated on Levothroid overnight because of hypotension, currently off the Levothroid. States breathing is imp roved, gets short of breath on exertion REVIEW OF SYSTEMS: CONSTITUTIONAL: No fever, no malaise,. CARDIOVASCULAR: No chest pain, no palpitations, no syncope. PULMONARY: As mentioned in HPI GASTROINTESTINAL: No diarrhea, no nausea, no vomiting, no abdominal pain. NEUROLOGICAL: No headaches, no weakness, PHYSICAL EXAMINATION: GENERAL: The patient is alert and oriented x3, not in any acute distress. Well developed, well nourished. HEENT: Pupils are round and equally reacting to light. EOMI. No scleral icterus. No conjunctival pallor. Normocephalic, atraumatic. No pharyngeal erythema. No thyromegaly. CARDIOVASCULAR: S1 and S2 present. No murmurs, rubs, or gallops. PULMONARY: Chest is clear to auscultation, no wheezing or crackles. ABDOMEN: Soft, nontender, nondistended, normoactive bowel sounds. No palpable organomegaly. MUSCULOSKELETAL: No joint swelling or deformity. EXTREMITIES: No cyanosis, clubbing, or pedal edema. NEUROLOGICAL: Gross neurological examination did not reveal any focal deficits. SKIN: No rashes. Assessment and plan ST elevation [place] S/p PCI mid LAD with a 3.25 x 15 mm Xience TOM CAD Dilated cardiomyopathy status post AICD Diabetes mellitus Hypertension Plan; Monitor vital signs Monitor CBC Monitor CMP Monitor blood sugar levels, continue sliding scale insulin Continue aspirin and Effient. Continue losartan and metoprolol Decrease Lasix to 20 mg every 12 Continue Lipitor Follow-up on cardiology recommendations Objective - Vital Signs Vital signs: Vital Signs Temp 97.7 F 03/09/22 08:00 Pulse 87 03/09/22 10:00 Resp 16 03/09/22 10:00 BP 101/69 03/09/22 10:00 Pulse Ox 93 L 03/09/22 10:00 FiO2 Intake & Output 03/08/22 03/09/22 03/09/22 18:59 06:59 18:59 Intake Total 398.564 336.541 Output Total 1050 0 Balance -1050 398.564 336.541 Intake: IV 360 Sodium Chloride 0.9% 1, 360 000 ml @ 20 mls/hr IV . Q24H [facility] Rx#:[id number] Intake, IV Titration 38.564 86.541 Amount Norepinephrine 4 mg In 38.564 86.541 Sodium Chloride 0.9% 250 ml @ 0.03 MCG/KG/MIN 13. 773 mls/hr IV .[id number] [facility] Rx#:[id number] Oral 250 Output: Urine 1050 0 Other: Voiding Method Urinal Urinal # Voids 2 - Labs CBC & Chem 7: 03/09/22 05:16 03/09/22 05:16 Labs: Abnormal Lab Results - Last 24 Hours (Table) 03/08/22 03/08/22 03/08/22 Range/Units 11:46 17:26 19:41 Sodium (137-145) mmol/L BUN (9-20) mg/dL Glucose (74-99) mg/dL POC Glucose (mg/dL) 173 H 261 H 190 H (70-110) mg/dL Magnesium (1.6-2.3) mg/dL Total Bilirubin (0.2-1.3) mg/dL AST (17-59) U/L ALT (4-49) U/L 03/08/22 03/09/22 03/09/22 Range/Units 23:24 05:16 06:53 Sodium 135 L (137-145) mmol/L BUN 28 H (9-20) mg/dL Glucose 149 H (74-99) mg/dL POC Glucose (mg/dL) 130 H (70-110) mg/dL Magnesium 2.4 H (1.6-2.3) mg/dL Total Bilirubin 1.5 H (0.2-1.3) mg/dL AST 68 H (17-59) U/L ALT 51 H (4-49) U/L
[2022-03-09 11:25] LABS: Glucose,Whole Blood 225 mg/dL (70-110)
[2022-03-09 12:55] VITALS: BMI 40.4
[2022-03-09 16:11] LABS: Glucose,Whole Blood 283 mg/dL (70-110)
[2022-03-09] MEDS: NOREPINEPHRINE 4 MG in SODIUM CHLORIDE 0.9% 250 ML IV SCH (18:06)
--- NOTE | 2022-03-09 18:07 | CA ---
Transthoracic Echo Report Name: Cosmo Jim Age: 66 Gender: M : 1955 Exam Date: 03/09/2022 08:20 Exam Location: [place] [facility] Ht (in): 68 Wt (lb): 265 Ordering Physician: Rajinder Cummins MD ([id number]) Attending/Referring Phys: Maria G FRIEDMAN Act English Tutor Ester Garcia RDCS Procedure CPT: Indications: Assess LV function/post stemi Cardiac Hx: Technical Quality: Fair, Technically difficult study Contrast 1: Total Dose (mL): Contrast 2: Total Dose (mL): MEASUREMENTS (Male / Female) Normal Values 2D ECHO LV Diastolic Diameter PLAX 6.3 cm 4.2 - 5.9 / 3.9 - 5.3 cm LV Systolic Diameter PLAX 5.4 cm IVS Diastolic Thickness 1.3 cm 0.6 - 1.0 / 0.6 - 0.9 cm LVPW Diastolic Thickness 1.4 cm 0.6 - 1.0 / 0.6 - 0.9 cm LV Relative Wall Thickness 0.4 RV Internal Dim ED PLAX 4.1 cm M-MODE Aortic Root Diameter MM 2.6 cm LA Systolic Diameter MM 5.3 cm LA Ao Ratio MM 2.0 AV Cusp Separation MM 1.9 cm DOPPLER AV Peak Velocity 80.1 cm/s AV Peak Gradient 2.6 mmHg LVOT Peak Velocity 69.9 cm/s LVOT Peak Gradient 2.0 mmHg MV Area PHT 5.0 cm??? Mitral E Point Velocity 99.8 cm/s Mitral A Point Velocity 54.0 cm/s Mitral E to A Ratio 1.8 MV Deceleration Time 152.9 ms MV E' Velocity 3.9 cm/s Mitral E to MV E' Ratio 25.8 TR Peak Velocity 266.3 cm/s TR Peak Gradient 28.4 mmHg Right Ventricular Systolic Press 33.4 mmHg FINDINGS Left Ventricle Attempted Lumason but no IV access. Mildly increased septal wall thickness. Mildly increased left ventricular diastolic diameter. Mild left ventricular dilatation. Severely reduced global left ventricular systolic function. Left ventricular ejection fraction is estimated at 25 %. Right Ventricle Moderate right ventricular dilatation. Right ventricular systolic pressure within normal limits. Right Atrium Normal right atrial size. Left Atrium Mildly increased left atrial area. Mitral Valve Mild mitral regurgitation. Aortic Valve No aortic valve stenosis or regurgitation. Tricuspid Valve Structurally normal tricuspid valve. Mild tricuspid regurgitation. Pulmonic Valve Trace pulmonic regurgitation. Pericardium No pericardial effusion. Aorta Normal size aortic root and proximal ascending aorta. CONCLUSIONS Suboptimal acoustic windows Dilated LV with severe LV dysfunction ejection fraction less than 25% Previewed by: Dr. Sherwin Tena MD (Electronically Signed) Final Date: 09 March 2022 18:06
[2022-03-09 19:50] LABS: Glucose,Whole Blood 248 mg/dL (70-110)
[2022-03-09 20:27] LABS: Glucose,Whole Blood 210 mg/dL (70-110)
[2022-03-09] MEDS: INSULIN DETEMIR (LEVEMIR) 100 UNIT/ML SYR SQ SCH (20:27)
[2022-03-09] MEDS: ZOLPIDEM 5 MG TAB PO PRN (21:58)
[2022-03-10] MEDS: SODIUM CHLORIDE 0.9% 1,000 ML IV SCH (01:49)
[2022-03-10] MEDS: ALPRAZolam 0.25 MG TAB PO PRN ×2 (02:37→21:18)
[2022-03-10 05:50] LABS: Glucose,Whole Blood 139 mg/dL (70-110)
[2022-03-10 06:14] LABS: Basophils % (A) 1 %; Eosinophils # (A) 0.1 k/uL (0-0.7); Eosinophils % (A) 2 %; HCT 44.1 % (39.0-53.0); HGB 14.1 gm/dL (13.0-17.5); Lymphocytes # (A) 1.3 k/uL (1.0-4.8); Lymphocytes % (A) 19 %; MCH 28.9 pg (25.0-35.0); MCHC 31.8 g/dL (31.0-37.0); MCV 90.8 fL (80.0-100.0); Mean Platelet Volume 9.2; Monocytes # (A) 0.7 k/uL (0-1.0); Monocytes % (A) 10 %; Neutrophils # (A) 4.6 k/uL (1.3-7.7); Neutrophils % (A) 67 %; Platelet Count 148 k/uL (150-450); RBC 4.86 m/uL (4.30-5.90); RDW 12.6 % (11.5-15.5); WBC 6.9 k/uL (3.8-10.6)
[2022-03-10 06:26] LABS: ALT 39 U/L (4-49); AST 37 U/L (17-59); African American GFR (CKD) >90 (>60 ml/min/1.73 sqM); Albumin 3.6 g/dL (3.5-5.0); Alkaline Phosphatase 95 U/L (38-126); Anion Gap 6 mmol/L; Blood Urea Nitrogen 27 mg/dL (9-20); Calcium 8.1 mg/dL (8.4-10.2); Carbon Dioxide 30 mmol/L (22-30); Chloride 100 mmol/L (98-107); Glucose 149 mg/dL (74-99); Non-African American GFR(CKD) >90 (>60 ml/min/1.73 sqM); Potassium 3.9 mmol/L (3.5-5.1); Sodium 136 mmol/L (137-145); Total Bilirubin 1.2 mg/dL (0.2-1.3)
[2022-03-10] MEDS: INSULIN ASPART (NovoLOG) 100 UNIT/ML VIAL SQ SCH ×4 (06:36→21:17)
[2022-03-10 06:37] LABS: Glucose,Whole Blood 146 mg/dL (70-110)
--- NOTE | 2022-03-10 08:03 | P.PN ---
Subjective Progress Note Date: 03/10/22 Principal diagnosis: Acute anterior ST elevation myocardial infarction The patient is a 66-year-old gentleman who was admitted to the hospital with a chest discomfort and was diagnosed with acute anterior ST elevation myocardial infarction be he underwent an emergent heart catheterization and stenting of the LAD March 092022 The patient was seen and evaluated this morning. He is asymptomatic. He is hemodynamically unstable and requiring small doses of norepinephrine. I'm going to decrease the dose of Lasix to 20 mg by mouth twice a day hopefully we can wean him from norepinephrine. Beside that she remains on dual antiplatelet therapy along with intermediate intensity statin. Echo still pending March 102022 The patient was seen and evaluated this morning. He is asymptomatic. He is hemodynamically stable and not on vasopressin at this point. The echo revealed severe cardiomyopathy with EF around 20%. Currently he is on dual antiplatelet therapy along with intermediate intensity statin. I'm going to add a small dose of RAFIA inhibitor to the current medical regimen. He has been having a low saturation during the night. I'm going to continue the Lasix for additional 24 hours and switch the patient to Lasix by mouth tomorrow. The patient can be transferred out of the intensive care unit. Objective - Vital Signs Vital signs: Vital Signs Temp 98.2 F 03/10/22 04:00 Pulse 93 03/10/22 06:20 Resp 18 03/10/22 06:20 BP 117/67 03/10/22 04:00 Pulse Ox 92 L 03/10/22 06:20 FiO2 40 03/10/22 04:00 Intake & Output 03/09/22 03/10/22 03/10/22 18:59 06:59 18:59 Intake Total 826.541 150 Output Total 1050 450 Balance -223.459 -300 Weight 120.5 kg Intake: Intake, IV Titration 86.541 Amount Norepinephrine 4 mg In 86.541 Sodium Chloride 0.9% 250 ml @ 0.03 MCG/KG/MIN 13. 773 mls/hr [id number] Rx#:[id number] Oral 740 150 Output: Urine 1050 450 Other: Voiding Method Toilet Toilet Urinal Urinal # Voids 1 # Bowel Movements 1 1 - Constitutional General appearance: Present: no acute distress - Respiratory Respiratory: bilateral: diminished - Cardiovascular Rhythm: regular - Labs CBC & Chem 7: 03/10/22 05:45 03/10/22 05:45 Labs: Abnormal Lab Results - Last 24 Hours (Table) 03/09/22 03/09/22 03/09/22 Range/Units 11:23 16:08 19:47 Plt Count (150-450) k/uL Sodium (137-145) mmol/L BUN (9-20) mg/dL Glucose (74-99) mg/dL POC Glucose (mg/dL) 225 H 283 H 248 H (70-110) mg/dL Calcium (8.4-10.2) mg/dL 03/09/22 03/10/22 03/10/22 Range/Units 20:25 05:45 05:45 Plt Count 148 L (150-450) k/uL Sodium 136 L (137-145) mmol/L BUN 27 H (9-20) mg/dL Glucose 149 H (74-99) mg/dL POC Glucose (mg/dL) 210 H (70-110) mg/dL Calcium 8.1 L (8.4-10.2) mg/dL 03/10/22 03/10/22 Range/Units 05:47 06:36 Plt Count (150-450) k/uL Sodium (137-145) mmol/L BUN (9-20) mg/dL Glucose (74-99) mg/dL POC Glucose (mg/dL) 139 H 146 H (70-110) mg/dL Calcium (8.4-10.2) mg/dL Assessment and Plan Assessment: Assessment Acute anterior ST elevation myocardial infarction Hypotension requiring vasopressors which has resolved Severe cardiomyopathy, ischemic Plan Decrease the dose of Lasix and continue Lasix IV for additional 24-hour Continue dual antiplatelet therapy Add small dose of RAFIA inhibitor to the current medical regimen
[2022-03-10] MEDS: INSULIN DETEMIR (LEVEMIR) 100 UNIT/ML SYR SQ SCH ×2 (09:03→21:17)
[2022-03-10] MEDS: PRASUGREL 10 MG TAB PO SCH (09:03)
[2022-03-10] MEDS: ATORVASTATIN 40 MG TAB PO SCH (09:04)
[2022-03-10] MEDS: FUROSEMIDE 10 MG/ML 2 ML VIAL IV SCH ×2 (09:04→21:17)
[2022-03-10] MEDS: METOPROLOL SUCCINATE (ER) 25 MG TAB.ER.24H PO SCH (09:04)
[2022-03-10] MEDS: ASPIRIN 81 MG PO SCH (09:04)
[2022-03-10] MEDS ORDERED: Potassium Replacement Protocol 1 EACH MISC MISCELLANE PRN (09:24)
[2022-03-10] MEDS ORDERED: POTASSIUM CHLORIDE ER 20 MEQ TAB.ER PO SCH (10:00)
--- NOTE | 2022-03-10 10:46 | P.PN ---
Subjective Progress Note Date: 03/10/22 Principal diagnosis: Myocardial infarction. Pulmonary consult dated 03/09/2022. 66-year-old male who was seen in the emergency room on March 06. The patient was a transfer from an outside facility for chest pain, cardiomyopathy, and suspected ST segment elevation myocardial infarction. The patient apparently denied any shortness of breath, but did have chest discomfort. Going to the catheterization laboratory on March 07 had a stent placed in his mid LAD vessel. The procedure was done by Dr. Prajapati. Currently, the patient is seen in the intensive care unit. He is in room 254. The patient's on 2 L of oxygen. He is getting saline at KVO. He is also getting a small amount of norepinephrine, at 3.5 g/min. He is resting comfortably without any distress. CBC is normal. Sodium 135, potassium 3.9, chlorides 101, CO2 29, anion gap 5, BUN 28, and creatinine 0.96. No recent chest x-ray. Progress note dated 03/10/2022. The patient is again seen in the intensive care unit, room 254. The patient came in with a ST segment elevation myocardial infarction, had a PCI, and a stent placed, to his mid LAD. Currently is not receiving any IV fluids. He is on 2 L of oxygen. He feels well. The patient is hoping to be discharged out of the intensive care unit later today. He had an uneventful night according to the nurses. White count 6.9, hemoglobin 14.1, and platelet count 248,000. Sodium 136, potassium 3.9, chlorides 100, CO2 30, BUN 27, and creatinine 0.88. Objective - Vital Signs Vital signs: Vital Signs Temp 97.5 F L 03/10/22 08:00 Pulse 94 03/10/22 09:00 Resp 20 03/10/22 08:00 BP 108/80 03/10/22 08:00 Pulse Ox 94 L 03/10/22 09:00 FiO2 40 03/10/22 04:00 Intake & Output 03/09/22 03/10/22 03/10/22 18:59 06:59 18:59 Intake Total 826.541 150 Output Total 1050 450 150 Balance -223.459 -300 -150 Weight 120.5 kg Intake: Intake, IV Titration 86.541 Amount Norepinephrine 4 mg In 86.541 Sodium Chloride 0.9% 250 ml @ 0.03 MCG/KG/MIN 13. 773 mls/hr IV .[id number] [facility] Rx#:[id number] Oral 740 150 Output: Urine 1050 450 150 Other: Voiding Method Toilet Toilet Toilet Urinal Urinal Urinal # Voids 1 # Bowel Movements 1 1 - Exam No acute distress, oriented 3. Currently on 2 L of oxygen. HEENT examination is grossly unremarkable. Neck supple. Full range of motion. No adenopathy thyromegaly or neck vein distention. Cardiovascular examination reveals regular rhythm rate. S1-S2 normal. No S3 or S4. No discernible murmur noted. Heart rate 90 bpm. Lungs reveal clear breath sounds. Breath sounds are equal bilaterally. No adventitious lung sounds including wheezes rhonchi or crackles. Abdomen soft bowel sounds are heard. No masses or tenderness. Extremities are intact. No cyanosis clubbing or edema. Skin is without rash or lesion. Neurologic examination is brief but nonfocal. - Labs CBC & Chem 7: 03/10/22 05:45 03/10/22 05:45 Labs: Abnormal Lab Results - Last 24 Hours (Table) 03/09/22 03/09/22 03/09/22 Range/Units 11:23 16:08 19:47 Plt Count (150-450) k/uL Sodium (137-145) mmol/L BUN (9-20) mg/dL Glucose (74-99) mg/dL POC Glucose (mg/dL) 225 H 283 H 248 H (70-110) mg/dL Calcium (8.4-10.2) mg/dL 03/09/22 03/10/22 03/10/22 Range/Units 20:25 05:45 05:45 Plt Count 148 L (150-450) k/uL Sodium 136 L (137-145) mmol/L BUN 27 H (9-20) mg/dL Glucose 149 H (74-99) mg/dL POC Glucose (mg/dL) 210 H (70-110) mg/dL Calcium 8.1 L (8.4-10.2) mg/dL 03/10/22 03/10/22 Range/Units 05:47 06:36 Plt Count (150-450) k/uL Sodium (137-145) mmol/L BUN (9-20) mg/dL Glucose (74-99) mg/dL POC Glucose (mg/dL) 139 H 146 H (70-110) mg/dL Calcium (8.4-10.2) mg/dL Assessment and Plan Assessment: ST segment elevation myocardial infarction, status post stent placement, mid LAD, 03/07/2022. History of cardiomyopathy. Status post AICD placement. History of diabetes mellitus. Plan: Plan dated 03/09/2022. The nurse will attempt to wean the patient also norepinephrine. The patient appears to be relatively stable. He is sitting in a chair next to his bed. The chest pain or chest discomfort. There is no shortness of breath or difficulty breathing. Labs, x-rays, and medications are reviewed. We will continue to follow the patient and make recommendations along the way. Plan dated 03/10/2022. The patient's doing well. The patient's on 2 L. Labs, x-rays, and medications are all reviewed. The patient can be transferred out to the 3 S. floor. The patient denies any chest pain or chest discomfort. He denies any shortness of breath. We will continue to follow make recommendations along the way. Time with Patient: Less than 30
--- NOTE | 2022-03-10 11:43 | P.PN ---
Subjective Progress Note Date: 03/10/22 patient is 66-year-old gentleman with past medical significant for dilated cardiomyopathy, status post AICD, diabetes mellitus who is a transfer from [facility] because of chest pain. Patient initially presented there because of chest pain that started 3 hours ago, patient was found to have EKG changes and ST segment elevation in v3, V4, V5, V6. Patient was transferred to [facility] for further evaluation by interventional cardiology. Patient went cardiac cath S/p PCI mid LAD with a 3.25 x 15 mm Xience TOM. Patient was admitted to ICU for further evaluation and treatment 03/08. Patient seen and examined. Not requiring any oxygen at this time. States breathing has improved. No chest pain. Vital signs stable 03/09. Patient seen and examined. Patient was initiated on Levothroid overnight because of hypotension, currently off the Levothroid. States breathing is imp roved, gets short of breath on exertion 03/10. Patient seen and examined. Sitting upright in the chair. States he feels better than yesterday. Shortness of breath has improved. Vital signs are stable with blood pressure 112/73, heart rate of 90, respiratory rate of 20 REVIEW OF SYSTEMS: CONSTITUTIONAL: No fever, no malaise,. CARDIOVASCULAR: No chest pain, no palpitations, no syncope. PULMONARY: As mentioned in HPI GASTROINTESTINAL: No diarrhea, no nausea, no vomiting, no abdominal pain. NEUROLOGICAL: No headaches, no weakness, PHYSICAL EXAMINATION: GENERAL: The patient is alert and oriented x3, not in any acute distress. Well developed, well nourished. HEENT: Pupils are round and equally reacting to light. EOMI. No scleral icterus. No conjunctival pallor. Normocephalic, atraumatic. No pharyngeal erythema. No thyromegaly. CARDIOVASCULAR: S1 and S2 present. No murmurs, rubs, or gallops. PULMONARY: Chest is clear to auscultation, no wheezing or crackles. ABDOMEN: Soft, nontender, nondistended, normoactive bowel sounds. No palpable organomegaly. MUSCULOSKELETAL: No joint swelling or deformity. EXTREMITIES: 1+ pitting edema lower extremities bilaterally NEUROLOGICAL: Gross neurological examination did not reveal any focal deficits. SKIN: No rashes. Assessment and plan ST elevation [place] S/p PCI mid LAD with a 3.25 x 15 mm Xience TOM CAD Dilated cardiomyopathy status post AICD Diabetes mellitus Hypertension Plan; Monitor vital signs Monitor CBC Monitor CMP Monitor blood sugar levels, continue sliding scale insulin Continue aspirin and Effient. Continue losartan and metoprolol Continue Lasix 20 mg every 12 Continue Lipitor Follow-up on pulmonary recommendations Follow-up on cardiology recommendations Objective - Vital Signs Vital signs: Vital Signs Temp 97.5 F L 03/10/22 08:00 Pulse 90 03/10/22 11:00 Resp 20 03/10/22 08:00 BP 112/73 03/10/22 11:00 Pulse Ox 94 L 03/10/22 09:00 FiO2 40 03/10/22 04:00 Intake & Output 03/09/22 03/10/22 03/10/22 18:59 06:59 18:59 Intake Total 826.541 150 Output Total 1050 450 150 Balance -223.459 -300 -150 Weight 120.5 kg Intake: Intake, IV Titration 86.541 Amount Norepinephrine 4 mg In 86.541 Sodium Chloride 0.9% 250 ml @ 0.03 MCG/KG/MIN 13. 773 mls/hr IV .[id number] [facility] Rx#:[id number] Oral 740 150 Output: Urine 1050 450 150 Other: Voiding Method Toilet Toilet Toilet Urinal Urinal Urinal # Voids 1 # Bowel Movements 1 1 - Labs CBC & Chem 7: 03/10/22 05:45 03/10/22 05:45 Labs: Abnormal Lab Results - Last 24 Hours (Table) 03/09/22 03/09/22 03/09/22 Range/Units 16:08 19:47 20:25 Plt Count (150-450) k/uL Sodium (137-145) mmol/L BUN (9-20) mg/dL Glucose (74-99) mg/dL POC Glucose (mg/dL) 283 H 248 H 210 H (70-110) mg/dL Calcium (8.4-10.2) mg/dL 03/10/22 03/10/22 03/10/22 Range/Units 05:45 05:45 05:47 Plt Count 148 L (150-450) k/uL Sodium 136 L (137-145) mmol/L BUN 27 H (9-20) mg/dL Glucose 149 H (74-99) mg/dL POC Glucose (mg/dL) 139 H (70-110) mg/dL Calcium 8.1 L (8.4-10.2) mg/dL 03/10/22 Range/Units 06:36 Plt Count (150-450) k/uL Sodium (137-145) mmol/L BUN (9-20) mg/dL Glucose (74-99) mg/dL POC Glucose (mg/dL) 146 H (70-110) mg/dL Calcium (8.4-10.2) mg/dL
[2022-03-10 11:52] LABS: Glucose,Whole Blood 188 mg/dL (70-110)
[2022-03-10 16:13] LABS: Glucose,Whole Blood 221 mg/dL (70-110)
[2022-03-10 20:14] LABS: Glucose,Whole Blood 185 mg/dL (70-110)
[2022-03-11] MEDS: ALPRAZolam 0.25 MG TAB PO PRN ×2 (03:42→22:02)
[2022-03-11 06:40] LABS: Glucose,Whole Blood 104 mg/dL (70-110)
[2022-03-11] MEDS: INSULIN ASPART (NovoLOG) 100 UNIT/ML VIAL SQ SCH ×4 (06:41→20:19)
--- NOTE | 2022-03-11 07:11 | P.PN ---
Subjective Progress Note Date: 03/11/22 Principal diagnosis: Acute anterior ST elevation myocardial infarction The patient is a 66-year-old gentleman who was admitted to the hospital with a chest discomfort and was diagnosed with acute anterior ST elevation myocardial infarction be he underwent an emergent heart catheterization and stenting of the LAD March 092022 The patient was seen and evaluated this morning. He is asymptomatic. He is hemodynamically unstable and requiring small doses of norepinephrine. I'm going to decrease the dose of Lasix to 20 mg by mouth twice a day hopefully we can wean him from norepinephrine. Beside that she remains on dual antiplatelet therapy along with intermediate intensity statin. Echo still pending March 112022 The patient was seen and evaluated this morning. He remains asymptomatic in terms of chest pain or chest discomfort or shortness of breath. The pressure remains marginally low. On examination his euvolemic. He has clear breathing sounds bilaterally. He still required 2 L of oxygen. I'm going to see how he does without oxygen meanwhile DC Lasix IV and start the patient on Lasix by mouth. Continue dual antiplatelet therapy along with statin. Possible discharge in the next 24 hours. Objective - Vital Signs Vital signs: Vital Signs Temp 97.6 F 03/11/22 04:00 Pulse 85 03/11/22 04:00 Resp 14 03/11/22 04:00 BP 87/61 03/11/22 04:00 Pulse Ox 94 L 03/11/22 00:00 FiO2 40 03/10/22 04:00 Intake & Output 03/10/22 03/11/22 03/11/22 18:59 06:59 18:59 Intake Total 500 Output Total 800 525 Balance -800 -25 Intake: Oral 500 Output: Urine 800 525 Other: Voiding Method Toilet Toilet Urinal Urinal # Bowel Movements 2 - Constitutional General appearance: Present: no acute distress - Respiratory Respiratory: bilateral: CTA - Cardiovascular Rhythm: regular - Labs CBC & Chem 7: 03/10/22 05:45 03/10/22 05:45 Labs: Abnormal Lab Results - Last 24 Hours (Table) 03/10/22 03/10/22 03/10/22 Range/Units 11:50 16:11 20:13 POC Glucose (mg/dL) 188 H 221 H 185 H (70-110) mg/dL Assessment and Plan Assessment: Assessment Acute anterior ST elevation myocardial infarction Hypotension requiring vasopressors which has resolved Severe cardiomyopathy, ischemic Plan DC Lasix IV and start the patient on Lasix by mouth Continue the rest of the current medical regimen Possible discharge in the next 24 hour
[2022-03-11 08:15] LABS: ALT 37 U/L (4-49); AST 36 U/L (17-59); African American GFR (CKD) >90 (>60 ml/min/1.73 sqM); Albumin 3.8 g/dL (3.5-5.0); Alkaline Phosphatase 100 U/L (38-126); Anion Gap 5 mmol/L; Blood Urea Nitrogen 30 mg/dL (9-20); Calcium 8.4 mg/dL (8.4-10.2); Carbon Dioxide 28 mmol/L (22-30); Chloride 102 mmol/L (98-107); Glucose 231 mg/dL (74-99); Non-African American GFR(CKD) >90 (>60 ml/min/1.73 sqM); Potassium 4.4 mmol/L (3.5-5.1); Sodium 135 mmol/L (137-145); Total Bilirubin 1.8 mg/dL (0.2-1.3); Total Protein 7.3 g/dL (6.3-8.2)
[2022-03-11] MEDS: ATORVASTATIN 40 MG TAB PO SCH (09:18)
[2022-03-11] MEDS: ASPIRIN 81 MG PO SCH (09:18)
[2022-03-11] MEDS: METOPROLOL SUCCINATE (ER) 25 MG TAB.ER.24H PO SCH (09:19)
[2022-03-11] MEDS: FUROSEMIDE 20 MG TAB PO SCH (09:19)
[2022-03-11] MEDS: INSULIN DETEMIR (LEVEMIR) 100 UNIT/ML SYR SQ SCH ×2 (09:19→20:18)
[2022-03-11] MEDS: PRASUGREL 10 MG TAB PO SCH (09:20)
--- NOTE | 2022-03-11 10:31 | P.PN ---
Subjective Progress Note Date: 03/11/22 Principal diagnosis: Myocardial infarction. Pulmonary consult dated 03/09/2022. 66-year-old male who was seen in the emergency room on March 06. The patient was a transfer from an outside facility for chest pain, cardiomyopathy, and suspected ST segment elevation myocardial infarction. The patient apparently denied any shortness of breath, but did have chest discomfort. Going to the catheterization laboratory on March 07 had a stent placed in his mid LAD vessel. The procedure was done by Dr. Prajapati. Currently, the patient is seen in the intensive care unit. He is in room 254. The patient's on 2 L of oxygen. He is getting saline at KVO. He is also getting a small amount of norepinephrine, at 3.5 g/min. He is resting comfortably without any distress. CBC is normal. Sodium 135, potassium 3.9, chlorides 101, CO2 29, anion gap 5, BUN 28, and creatinine 0.96. No recent chest x-ray. Progress note dated 03/10/2022. The patient is again seen in the intensive care unit, room 254. The patient came in with a ST segment elevation myocardial infarction, had a PCI, and a stent placed, to his mid LAD. Currently is not receiving any IV fluids. He is on 2 L of oxygen. He feels well. The patient is hoping to be discharged out of the intensive care unit later today. He had an uneventful night according to the nurses. White count 6.9, hemoglobin 14.1, and platelet count 248,000. Sodium 136, potassium 3.9, chlorides 100, CO2 30, BUN 27, and creatinine 0.88. Progress note dated 03/11/2022. The patient is again seen today in the intensive care unit, room 254. He is on room air. He's not receiving any IV fluids. The patient is waiting for bed on the 3 S. floor. He has no complaints today. Labs today include a sodium 135, potassium 4.4, chlorides 102, CO2 28, BUN 30, creatinine 0.86. Objective - Vital Signs Vital signs: Vital Signs Temp 98 F 03/11/22 09:00 Pulse 91 03/11/22 09:00 Resp 17 03/11/22 09:00 BP 107/70 03/11/22 09:00 Pulse Ox 92 L 03/11/22 09:00 FiO2 40 03/10/22 04:00 Intake & Output 03/10/22 03/11/22 03/11/22 18:59 06:59 18:59 Intake Total 500 Output Total 800 525 Balance -800 -25 Intake: Oral 500 Output: Urine 800 525 Other: Voiding Method Toilet Toilet Urinal Urinal # Bowel Movements 2 - Exam No acute distress, oriented 3. Currently on room air. Saturations are 93%. HEENT examination is grossly unremarkable. Neck supple. Full range of motion. No adenopathy thyromegaly or neck vein distention. Cardiovascular examination reveals regular rhythm rate. S1-S2 normal. No S3 or S4. No discernible murmur noted. Heart rate 91 bpm. Lungs reveal clear breath sounds. Breath sounds are equal bilaterally. No adventitious lung sounds including wheezes rhonchi or crackles. Abdomen soft bowel sounds are heard. No masses or tenderness. Extremities are intact. No cyanosis clubbing or edema. Skin is without rash or lesion. Neurologic examination is brief but nonfocal. - Labs CBC & Chem 7: 03/10/22 05:45 03/11/22 07:40 Labs: Abnormal Lab Results - Last 24 Hours (Table) 03/10/22 03/10/22 03/10/22 Range/Units 11:50 16:11 20:13 Sodium (137-145) mmol/L BUN (9-20) mg/dL Glucose (74-99) mg/dL POC Glucose (mg/dL) 188 H 221 H 185 H (70-110) mg/dL Total Bilirubin (0.2-1.3) mg/dL 03/11/22 Range/Units 07:40 Sodium 135 L (137-145) mmol/L BUN 30 H (9-20) mg/dL Glucose 231 H (74-99) mg/dL POC Glucose (mg/dL) (70-110) mg/dL Total Bilirubin 1.8 H (0.2-1.3) mg/dL Assessment and Plan Assessment: ST segment elevation myocardial infarction, status post stent placement, mid LAD, 03/07/2022. History of cardiomyopathy. Status post AICD placement. History of diabetes mellitus. Plan: Plan dated 03/09/2022. The nurse will attempt to wean the patient also norepinephrine. The patient appears to be relatively stable. He is sitting in a chair next to his bed. The chest pain or chest discomfort. There is no shortness of breath or difficulty breathing. Labs, x-rays, and medications are reviewed. We will continue to follow the patient and make recommendations along the way. Plan dated 03/10/2022. The patient's doing well. The patient's on 2 L. Labs, x-rays, and medications are all reviewed. The patient can be transferred out to the 3 S. floor. The patient denies any chest pain or chest discomfort. He denies any shortness of breath. We will continue to follow make recommendations along the way. Plan dated 03/11/2022. Patient is awaiting a bed on the 3 S. floor. Labs, x-rays, and medications are reviewed. The patient's currently on room air is not receiving any IV fluids. We will continue to follow the patient make recommendations along the way. Prognosis is thought to be generally good. Time with Patient: Less than 30
[2022-03-11 10:47] LABS: Basophils % (A) 1 %; Eosinophils # (A) 0.2 k/uL (0-0.7); Eosinophils % (A) 2 %; HCT 46.3 % (39.0-53.0); HGB 15.1 gm/dL (13.0-17.5); Lymphocytes # (A) 1.7 k/uL (1.0-4.8); Lymphocytes % (A) 22 %; MCH 30.1 pg (25.0-35.0); MCHC 32.5 g/dL (31.0-37.0); MCV 92.5 fL (80.0-100.0); Mean Platelet Volume 9.4; Monocytes # (A) 0.6 k/uL (0-1.0); Monocytes % (A) 8 %; Neutrophils % (A) 66 %; Platelet Count 168 k/uL (150-450); RBC 5.01 m/uL (4.30-5.90); WBC 7.6 k/uL (3.8-10.6)
--- NOTE | 2022-03-11 11:28 | P.PN ---
Subjective Progress Note Date: 03/11/22 patient is 66-year-old gentleman with past medical significant for dilated cardiomyopathy, status post AICD, diabetes mellitus who is a transfer from [facility] because of chest pain. Patient initially presented there because of chest pain that started 3 hours ago, patient was found to have EKG changes and ST segment elevation in v3, V4, V5, V6. Patient was transferred to [facility] for further evaluation by interventional cardiology. Patient went cardiac cath S/p PCI mid LAD with a 3.25 x 15 mm Xience TOM. Patient was admitted to ICU for further evaluation and treatment 03/08. Patient seen and examined. Not requiring any oxygen at this time. States breathing has improved. No chest pain. Vital signs stable 03/09. Patient seen and examined. Patient was initiated on Levothroid overnight because of hypotension, currently off the Levothroid. States breathing is imp roved, gets short of breath on exertion 03/10. Patient seen and examined. Sitting upright in the chair. States he feels better than yesterday. Shortness of breath has improved. Vital signs are stable with blood pressure 112/73, heart rate of 90, respiratory rate of 20 03/11. Patient seen and examined. Sitting upright in the chair. Not requiring any oxygen. Had been ambulating the hallways REVIEW OF SYSTEMS: CONSTITUTIONAL: No fever, no malaise,. CARDIOVASCULAR: No chest pain, no palpitations, no syncope. PULMONARY: As mentioned in HPI GASTROINTESTINAL: No diarrhea, no nausea, no vomiting, no abdominal pain. NEUROLOGICAL: No headaches, no weakness, PHYSICAL EXAMINATION: GENERAL: The patient is alert and oriented x3, not in any acute distress. Well developed, well nourished. HEENT: Pupils are round and equally reacting to light. EOMI. No scleral icterus. No conjunctival pallor. Normocephalic, atraumatic. No pharyngeal erythema. No thyromegaly. CARDIOVASCULAR: S1 and S2 present. No murmurs, rubs, or gallops. PULMONARY: Chest is clear to auscultation, no wheezing or crackles. ABDOMEN: Soft, nontender, nondistended, normoactive bowel sounds. No palpable organomegaly. MUSCULOSKELETAL: No joint swelling or deformity. EXTREMITIES: 1+ pitting edema lower extremities bilaterally NEUROLOGICAL: Gross neurological examination did not reveal any focal deficits. SKIN: No rashes. Assessment and plan ST elevation [place] S/p PCI mid LAD with a 3.25 x 15 mm Xience TOM CAD Dilated cardiomyopathy status post AICD Diabetes mellitus Hypertension Plan; Monitor vital signs Monitor CBC Monitor CMP Monitor blood sugar levels, continue sliding scale insulin Continue aspirin and Effient. Continue losartan and metoprolol Change IV Lasix to oral Lasix 20 mg daily Continue Lipitor Follow-up on pulmonary recommendations Follow-up on cardiology recommendations Transfer out of ICU. Possible discharge in next 24 hours Objective - Vital Signs Vital signs: Vital Signs Temp 98 F 03/11/22 09:00 Pulse 91 03/11/22 09:00 Resp 17 03/11/22 09:00 BP 107/70 03/11/22 09:00 Pulse Ox 92 L 03/11/22 09:00 FiO2 40 03/10/22 04:00 Intake & Output 03/10/22 03/11/22 03/11/22 18:59 06:59 18:59 Intake Total 500 Output Total 800 525 Balance -800 -25 Intake: Oral 500 Output: Urine 800 525 Other: Voiding Method Toilet Toilet Urinal Urinal # Bowel Movements 2 - Labs CBC & Chem 7: 03/11/22 10:23 03/11/22 07:40 Labs: Abnormal Lab Results - Last 24 Hours (Table) 03/10/22 03/10/22 03/10/22 Range/Units 11:50 16:11 20:13 Sodium (137-145) mmol/L BUN (9-20) mg/dL Glucose (74-99) mg/dL POC Glucose (mg/dL) 188 H 221 H 185 H (70-110) mg/dL Total Bilirubin (0.2-1.3) mg/dL 03/11/22 Range/Units 07:40 Sodium 135 L (137-145) mmol/L BUN 30 H (9-20) mg/dL Glucose 231 H (74-99) mg/dL POC Glucose (mg/dL) (70-110) mg/dL Total Bilirubin 1.8 H (0.2-1.3) mg/dL
[2022-03-11 11:53] LABS: Glucose,Whole Blood 161 mg/dL (70-110)
[2022-03-11 17:33] LABS: Glucose,Whole Blood 211 mg/dL (70-110)
[2022-03-11 20:15] LABS: Glucose,Whole Blood 200 mg/dL (70-110)
[2022-03-12 06:05] LABS: Basophils # (A) 0.1 k/uL (0-0.2); Basophils % (A) 1 %; Eosinophils # (A) 0.2 k/uL (0-0.7); Eosinophils % (A) 2 %; HCT 46.5 % (39.0-53.0); HGB 14.9 gm/dL (13.0-17.5); Lymphocytes # (A) 1.7 k/uL (1.0-4.8); Lymphocytes % (A) 22 %; MCH 29.8 pg (25.0-35.0); MCHC 32.1 g/dL (31.0-37.0); MCV 92.8 fL (80.0-100.0); Monocytes # (A) 0.7 k/uL (0-1.0); Monocytes % (A) 9 %; Neutrophils % (A) 65 %; Platelet Count 149 k/uL (150-450); RBC 5.01 m/uL (4.30-5.90); WBC 7.7 k/uL (3.8-10.6)
[2022-03-12 06:25] LABS: African American GFR (CKD) >90 (>60 ml/min/1.73 sqM); Anion Gap 6 mmol/L; Blood Urea Nitrogen 26 mg/dL (9-20); Calcium 8.7 mg/dL (8.4-10.2); Carbon Dioxide 27 mmol/L (22-30); Chloride 102 mmol/L (98-107); Glucose 125 mg/dL (74-99); Non-African American GFR(CKD) >90 (>60 ml/min/1.73 sqM); Potassium 4.2 mmol/L (3.5-5.1); Sodium 135 mmol/L (137-145)
[2022-03-12] MEDS: INSULIN ASPART (NovoLOG) 100 UNIT/ML VIAL SQ SCH ×2 (06:35→11:58)
--- NOTE | 2022-03-12 07:17 | P.PN ---
Subjective Progress Note Date: 03/12/22 Principal diagnosis: Acute anterior ST elevation myocardial infarction The patient is a 66-year-old gentleman who was admitted to the hospital with a chest discomfort and was diagnosed with acute anterior ST elevation myocardial infarction be he underwent an emergent heart catheterization and stenting of the LAD March 092022 The patient was seen and evaluated this morning. He is asymptomatic. He is hemodynamically unstable and requiring small doses of norepinephrine. I'm going to decrease the dose of Lasix to 20 mg by mouth twice a day hopefully we can wean him from norepinephrine. Beside that she remains on dual antiplatelet therapy along with intermediate intensity statin. Echo still pending March 112022 The patient was seen and evaluated this morning. He remains asymptomatic in terms of chest pain or chest discomfort or shortness of breath. The pressure remains marginally low. On examination his euvolemic. He has clear breathing sounds bilaterally. He still required 2 L of oxygen. I'm going to see how he does without oxygen meanwhile DC Lasix IV and start the patient on Lasix by mouth. Continue dual antiplatelet therapy along with statin. Possible discharge in the next 24 hours. 03/12/2022 The patient is asymptomatic from the cardiovascular standpoint of view, he is hemodynamically stable at this point. He was switched to Lasix by mouth yesterday. He is on dual antiplatelet therapy as well as a statin and he was started on RAFIA inhibitor few days ago. From a cardiovascular standpoint of view, the patient potentially can be discharged home. Objective - Vital Signs Vital signs: Vital Signs Temp 97.6 F 03/12/22 04:00 Pulse 92 03/12/22 04:00 Resp 16 03/12/22 04:00 BP 110/79 03/12/22 04:00 Pulse Ox 95 03/12/22 04:00 FiO2 40 03/10/22 04:00 Intake & Output 03/11/22 03/12/22 03/12/22 18:59 06:59 18:59 Intake Total 120 450 Output Total 450 Balance 120 0 Intake: Oral 120 450 Output: Urine 450 Other: Voiding Method Toilet Toilet # Voids 3 1 - Constitutional General appearance: Present: no acute distress - Respiratory Respiratory: bilateral: CTA - Cardiovascular Rhythm: regular Heart sounds: normal: S1, S2 - Labs CBC & Chem 7: 03/12/22 05:46 03/12/22 05:46 Labs: Abnormal Lab Results - Last 24 Hours (Table) 03/11/22 03/11/22 03/11/22 Range/Units 07:40 11:51 17:32 Plt Count (150-450) k/uL Sodium 135 L (137-145) mmol/L BUN 30 H (9-20) mg/dL Glucose 231 H (74-99) mg/dL POC Glucose (mg/dL) 161 H 211 H (70-110) mg/dL Total Bilirubin 1.8 H (0.2-1.3) mg/dL 03/11/22 03/12/22 03/12/22 Range/Units 20:13 05:46 05:46 Plt Count 149 L (150-450) k/uL Sodium 135 L (137-145) mmol/L BUN 26 H (9-20) mg/dL Glucose 125 H (74-99) mg/dL POC Glucose (mg/dL) 200 H (70-110) mg/dL Total Bilirubin (0.2-1.3) mg/dL Assessment and Plan Assessment: Assessment Acute anterior ST elevation myocardial infarction Hypotension requiring vasopressors which has resolved Severe cardiomyopathy, ischemic Plan Continue the current medical regimen The patient can be discharged home
[2022-03-12] MEDS: ASPIRIN 81 MG PO SCH (09:05)
[2022-03-12] MEDS: INSULIN DETEMIR (LEVEMIR) 100 UNIT/ML SYR SQ SCH (09:05)
[2022-03-12] MEDS: ATORVASTATIN 40 MG TAB PO SCH (09:05)
[2022-03-12] MEDS: METOPROLOL SUCCINATE (ER) 25 MG TAB.ER.24H PO SCH (09:05)
[2022-03-12] MEDS: FUROSEMIDE 20 MG TAB PO SCH (09:05)
[2022-03-12] MEDS: PRASUGREL 10 MG TAB PO SCH (09:06)
--- NOTE | 2022-03-12 09:50 | P.PN ---
Subjective Progress Note Date: 03/12/22 Principal diagnosis: Myocardial infarction. Pulmonary consult dated 03/09/2022. 66-year-old male who was seen in the emergency room on March 06. The patient was a transfer from an outside facility for chest pain, cardiomyopathy, and suspected ST segment elevation myocardial infarction. The patient apparently denied any shortness of breath, but did have chest discomfort. Going to the catheterization laboratory on March 07 had a stent placed in his mid LAD vessel. The procedure was done by Dr. Prajapati. Currently, the patient is seen in the intensive care unit. He is in room 254. The patient's on 2 L of oxygen. He is getting saline at KVO. He is also getting a small amount of norepinephrine, at 3.5 g/min. He is resting comfortably without any distress. CBC is normal. Sodium 135, potassium 3.9, chlorides 101, CO2 29, anion gap 5, BUN 28, and creatinine 0.96. No recent chest x-ray. Progress note dated 03/10/2022. The patient is again seen in the intensive care unit, room 254. The patient came in with a ST segment elevation myocardial infarction, had a PCI, and a stent placed, to his mid LAD. Currently is not receiving any IV fluids. He is on 2 L of oxygen. He feels well. The patient is hoping to be discharged out of the intensive care unit later today. He had an uneventful night according to the nurses. White count 6.9, hemoglobin 14.1, and platelet count 248,000. Sodium 136, potassium 3.9, chlorides 100, CO2 30, BUN 27, and creatinine 0.88. Progress note dated 03/11/2022. The patient is again seen today in the intensive care unit, room 254. He is on room air. He's not receiving any IV fluids. The patient is waiting for bed on the 3 S. floor. He has no complaints today. Labs today include a sodium 135, potassium 4.4, chlorides 102, CO2 28, BUN 30, creatinine 0.86. Progress note dated 03/12/2022. The patient remains in the intensive care unit, room 254. He's currently on no supplemental oxygen, and not receiving any IV fluids. The patient may be discharged possibly home later today. White count 7.7, hemoglobin 14.9, hematocrit 46.5, and platelet count 249,000. Sodium 135, potassium 4.2, chlorides 102, CO2 27, BUN 26, and creatinine 0.73. Glucose 125. Calcium is 8.7. Objective - Vital Signs Vital signs: Vital Signs Temp 98.0 F 03/12/22 08:00 Pulse 94 03/12/22 08:00 Resp 15 03/12/22 08:00 BP 108/74 03/12/22 08:00 Pulse Ox 94 L 03/12/22 08:00 FiO2 40 03/10/22 04:00 Intake & Output 03/11/22 03/12/22 03/12/22 18:59 06:59 18:59 Intake Total 120 450 Output Total 450 Balance 120 0 Intake: Oral 120 450 Output: Urine 450 Other: Voiding Method Toilet Toilet # Voids 3 1 - Exam No acute distress, oriented 3. Currently on room air. Saturations are 95 %. HEENT examination is grossly unremarkable. Neck supple. Full range of motion. No adenopathy thyromegaly or neck vein distention. Cardiovascular examination reveals regular rhythm rate. S1-S2 normal. No S3 or S4. No discernible murmur noted. Heart rate 94 bpm. Lungs reveal clear breath sounds. Breath sounds are equal bilaterally. No adventitious lung sounds including wheezes rhonchi or crackles. Abdomen soft bowel sounds are heard. No masses or tenderness. Extremities are intact. No cyanosis clubbing or edema. Skin is without rash or lesion. Neurologic examination is brief but nonfocal. - Labs CBC & Chem 7: 03/12/22 05:46 03/12/22 05:46 Labs: Abnormal Lab Results - Last 24 Hours (Table) 03/11/22 03/11/22 03/11/22 Range/Units 11:51 17:32 20:13 Plt Count (150-450) k/uL Sodium (137-145) mmol/L BUN (9-20) mg/dL Glucose (74-99) mg/dL POC Glucose (mg/dL) 161 H 211 H 200 H (70-110) mg/dL 03/12/22 03/12/22 Range/Units 05:46 05:46 Plt Count 149 L (150-450) k/uL Sodium 135 L (137-145) mmol/L BUN 26 H (9-20) mg/dL Glucose 125 H (74-99) mg/dL POC Glucose (mg/dL) (70-110) mg/dL Assessment and Plan Assessment: ST segment elevation myocardial infarction, status post stent placement, mid LAD, 03/07/2022. History of cardiomyopathy. Status post AICD placement. History of diabetes mellitus. Plan: Plan dated 03/09/2022. The nurse will attempt to wean the patient also norepinephrine. The patient appears to be relatively stable. He is sitting in a chair next to his bed. The chest pain or chest discomfort. There is no shortness of breath or difficulty breathing. Labs, x-rays, and medications are reviewed. We will continue to follow the patient and make recommendations along the way. Plan dated 03/10/2022. The patient's doing well. The patient's on 2 L. Labs, x-rays, and medications are all reviewed. The patient can be transferred out to the 3 S. floor. The patient denies any chest pain or chest discomfort. He denies any shortness of breath. We will continue to follow make recommendations along the way. Plan dated 03/11/2022. Patient is awaiting a bed on the 3 S. floor. Labs, x-rays, and medications are reviewed. The patient's currently on room air is not receiving any IV fluids. We will continue to follow the patient make recommendations along the way. Prognosis is thought to be generally good. Plan dated 03/12/2022. The patient's doing very well. The patient may be discharged home later today. The patient remains in the intensive care unit as he was no bed available on the 3 S. floor. Labs, x-rays, medications are reviewed. We'll continue to follow only as needed. Additional recommendations and suggestions are forthcoming. I did talk to the patient about the importance of taking better care of himself, w ith better health practices, nutrition, exercise, etc. Time with Patient: Less than 30
[2022-03-12 11:07] LABS: Glucose,Whole Blood 178 mg/dL (70-110)
--- NOTE | 2022-03-12 12:17 | P.DS ---
Providers Date of admission: 03/06/22 23:51 Expected date of discharge: 03/12/22 Attending physician: Eddy Jurado Consults: 03/06/22 23:50 Consult Physician Routine Consulting Provider: Marlene Hebert Consult Reason/Comments: stemi Do you want consulting provider notified?: Yes 03/07/22 00:48 Consult Physician Routine Consulting Provider: [facility] Consult Reason/Comments: Post Interventional Patient Do you want consulting provider notified?: Already Contacted 03/07/22 12:37 Consult Physician Routine Consulting Provider: Eddy Jurado Consult Reason/Comments: medical management Do you want consulting provider notified?: Yes 03/08/22 20:35 Consult Physician Routine Consulting Provider: Augustin Arora Consult Reason/Comments: ICU management, levophed Do you want consulting provider notified?: Already Contacted Primary care physician: Stated None Hospital Course: Discharge diagnoses; ST elevation PA S/p PCI mid LAD with a 3.25 x 15 mm Xience TOM CAD Dilated cardiomyopathy status post AICD Diabetes mellitus Hypertension Hospital course; patient is 66-year-old gentleman with past medical significant for dilated cardiomyopathy, status post AICD, diabetes mellitus who is a transfer from [facility] because of chest pain. Patient initially presented there because of chest pain that started 3 hours ago, patient was found to have EKG changes and ST segment elevation in v3, V4, V5, V6. Patient was transferred to [facility] for further evaluation by interventional cardiology. Patient went cardiac cath S/p PCI mid LAD with a 3.25 x 15 mm Xience TOM. Patient was admitted to ICU for further evaluation and treatment 03/08. Patient seen and examined. Not requiring any oxygen at this time. States breathing has improved. No chest pain. Vital signs stable 03/09. Patient seen and examined. Patient was initiated on Levothroid overnight because of hypotension, currently off the Levothroid. States breathing is im proved, gets short of breath on exertion 03/10. Patient seen and examined. Sitting upright in the chair. States he feels better than yesterday. Shortness of breath has improved. Vital signs are stable with blood pressure 112/73, heart rate of 90, respiratory rate of 20 03/11. Patient seen and examined. Sitting upright in the chair. Not requiring any oxygen. Had been ambulating the hallways 03/12. Patient seen and examined. Patient has been cleared by cardiology for discharge. PHYSICAL EXAMINATION: GENERAL: The patient is alert and oriented x3, not in any acute distress. Well developed, well nourished. HEENT: Pupils are round and equally reacting to light. EOMI. No scleral icterus. No conjunctival pallor. Normocephalic, atraumatic. No pharyngeal erythema. No thyromegaly. CARDIOVASCULAR: S1 and S2 present. No murmurs, rubs, or gallops. PULMONARY: Chest is clear to auscultation, no wheezing or crackles. ABDOMEN: Soft, nontender, nondistended, normoactive bowel sounds. No palpable organomegaly. MUSCULOSKELETAL: No joint swelling or deformity. EXTREMITIES: No cyanosis, clubbing, or pedal edema. NEUROLOGICAL: Gross neurological examination did not reveal any focal deficits. SKIN: No rashes. Patient Condition at Discharge: Serious Plan - Discharge Summary Discharge Rx Participant: No New Discharge Prescriptions: New lisinopriL [Zestril] 2.5 mg PO DAILY #30 tab Aspirin 81 mg PO DAILY #30 tab Prasugrel [Effient] 10 mg PO DAILY #30 tab Atorvastatin [Lipitor] 40 mg PO DAILY #30 tab Nitroglycerin Sl Tabs [Nitrostat] 0.4 mg SUBLINGUAL Q5M PRN #30 tab PRN Reason: Chest Pain Metoprolol Succinate (ER) [Toprol XL] 25 mg PO DAILY #30 tab Continue metFORMIN HCL 1,000 mg PO BID Insulin Glargine,Hum.rec.anlog [Lantus Solostar Pen] 40 units SQ BID Spironolactone [Aldactone] 25 mg PO DAILY Furosemide [Lasix] 40 mg PO DAILY Empagliflozin [Jardiance] 25 mg PO DAILY Discontinued Sacubitril/Valsartan [Entresto 49 mg-51 mg Tablet] 1 tab PO BID carvediloL [Coreg] 3.125 mg PO BID Discharge Medication List Empagliflozin [Jardiance] 25 mg PO DAILY 03/07/22 [History] Furosemide [Lasix] 40 mg PO DAILY 03/07/22 [History] Insulin Glargine,Hum.rec.anlog [Lantus Solostar Pen] 40 units SQ BID 03/07/22 [History] Spironolactone [Aldactone] 25 mg PO DAILY 03/07/22 [History] metFORMIN HCL 1,000 mg PO BID 03/07/22 [History] Aspirin 81 mg PO DAILY #30 tab 03/12/22 [Rx] Atorvastatin [Lipitor] 40 mg PO DAILY #30 tab 03/12/22 [Rx] Metoprolol Succinate (ER) [Toprol XL] 25 mg PO DAILY #30 tab 03/12/22 [Rx] Nitroglycerin Sl Tabs [Nitrostat] 0.4 mg SUBLINGUAL Q5M PRN #30 tab 03/12/22 [Rx] Prasugrel [Effient] 10 mg PO DAILY #30 tab 03/12/22 [Rx] lisinopriL [Zestril] 2.5 mg PO DAILY #30 tab 03/12/22 [Rx] Follow up Appointment(s)/Referral(s): None,Stated [Primary Care Provider] - 1-2 days Anderson Sahu MD [STAFF PHYSICIAN] - 1 Week Discharge Disposition: HOME SELF-CARE
[2022-03-12 12:40] VITALS: BP 112/82; PULSE 99; RESP 16; TEMP 97.8
== END 2022-03-12 13:45 | disposition home or self-care (01) | DRG 247 ==
LOC: EC 23:36 → 2SICU 23:51
PROVIDERS: ADMIT Hospitalist; ATTEND Hospitalist
PROC: 027034Z Dilation of Coronary Artery, One Artery with Drug-eluting Intraluminal Device, Percutaneous Approach (ICD-10-PCS; principal; 2022-03-07)
PROC: 4A023N7 Measurement of Cardiac Sampling and Pressure, Left Heart, Percutaneous Approach (ICD-10-PCS; 2022-03-08)
PROC: B2111ZZ Fluoroscopy of Multiple Coronary Arteries using Low Osmolar Contrast (ICD-10-PCS; 2022-03-08)
PROC: 3E033XZ Introduction of Vasopressor into Peripheral Vein, Percutaneous Approach (ICD-10-PCS; 2022-03-09)
DX: I21.09 ST elevation (STEMI) myocardial infarction involving other coronary artery of anterior wall (principal); I42.0 Dilated cardiomyopathy; I50.20 Unspecified systolic (congestive) heart failure; I11.0 Hypertensive heart disease with heart failure; I95.9 Hypotension, unspecified; E11.9 Type 2 diabetes mellitus without complications; I08.1 Rheumatic disorders of both mitral and tricuspid valves; I49.3 Ventricular premature depolarization; I45.10 Unspecified right bundle-branch block; E78.5 Hyperlipidemia, unspecified; I25.110 Atherosclerotic heart disease of native coronary artery with unstable angina pectoris; I25.5 Ischemic cardiomyopathy; Z87.891 Personal history of nicotine dependence; Z88.5 Allergy status to narcotic agent; Z79.899 Other long term (current) drug therapy; Z79.4 Long term (current) use of insulin; Z79.84 Long term (current) use of oral hypoglycemic drugs; Z95.810 Presence of automatic (implantable) cardiac defibrillator
CPT/HCPCS: 80048; 80053; 83036; 83735; 84100; 84132; 84484; 85025; 93306; 93458; 94640; 94660; 94760; 99285